=== PATIENT | male | born 1960 | race Caucasian/White ===

== ENCOUNTER 2019-11-22 15:52 | Inpatient (IN) ==
--- NOTE | 2019-11-22 16:25 | Diag Imaging Result Doc PS360 ---
EXAM: CHEST-2 VIEWS HISTORY: cough TECHNIQUE: Three views COMPARISON: 11/23/2017 FINDINGS: The lungs are hyperexpanded. Increased AP diameter to the chest. No cardiomegaly. There are increased interstitial markings in the left lung base. These were present on the prior exam. No consolidation. Mild compression fractures within two lower thoracic vertebra. Only one of these was compressed on the prior exam. IMPRESSION: 1.Left basilar scarring versus recurrent infiltrate 2.New mild lower thoracic compression fracture Electronically signed by Brown Ibarra 11/22/2019 4:23 PM
[2019-11-22 16:36] LABS: BASO# 0.07 X1000 (0.0-0.2); BASO% 0.4 % (0.0-0.8); HEMATOCRIT 45.3 % (42.0-52.0); HEMOGLOBIN 15.4 g/dL (14.0-18.0); IMM GRAN# 0.07 X1000 (0.0-0.04); IMM GRAN% 0.4 % (0.0-0.5); LYMPH# 1.58 X1000 (1.2-3.4); LYMPH% 8.7 % (20.5-51.1); MCH 30.9 PG (27-31); MONO# 1.08 X1000 (0.11-0.59); MONO% 5.9 % (1.7-9.3); MPV 10.1 FL (7.4-10.4); NEUT# 15.46 X1000 (1.4-6.5); NEUT% 84.6 % (42.2-75.2); PLT 141 X1000 (130-400); RBC 4.98 XMIL (4.7-6.1); RDW 12.6 % (11.5-14.5); WBC 18.26 X1000 (4.8-10.8)
--- NOTE | 2019-11-22 16:41 | EKG Report ---
Test Performed on : 11/22/2019 4:28:10 PM Test Reason : sob Blood Pressure : / mmHG Vent. Rate : 098 BPM Atrial Rate : 098 BPM P-R Int : 108 ms QRS Dur : 090 ms QT Int : 358 ms P-R-T Axes : 047 -18 076 degrees QTc Int : 457 ms Sinus rhythm. with short MI with occasional premature ventricular complexes. Nonspecific ST abnormality Abnormal ECG When compared with ECG of 23-NOV-2017 20:46, No significant change was found Unconfirmed Result
[2019-11-22 16:50] LABS: INR 1.18; PROTIME 15.2 Seconds (11.0-16.0)
[2019-11-22 16:51] LABS: PTT 55.6 Seconds (22.3-41.8)
[2019-11-22 17:05] LABS: ESTIMATED GFR > 60
[2019-11-22 17:06] LABS: AGAP 15; ALB/GLOB RATIO 1.3; ALBUMIN 3.8 g/dL (3.5-5.0); ALKALINE PHOSPHATASE 60 U/L (32-122); BUN 22 mg/dL (8-22); CALCIUM 8.1 mg/dL (8.8-10.2); CHLORIDE 88 mmol/L (98-107); CK PROFILE 1021 U/L (24-204); COSMO 259; CREATININE 1.2 mg/dL (0.7-1.2); GLUCOSE 137 mg/dL (70-104); GOT 42 U/L (10-34); GPT 28 U/L (10-44); SODIUM 126 mmol/L (136-145); TCO2 23 mmol/L (25-35); TOTAL BILIRUBIN 0.73 mg/dL (0.20-1.00); TOTAL PROTEIN 6.8 g/dL (6.3-8.3)
[2019-11-22] MEDS ORDERED: ROCEPHIN 1 GM in NS 50 ML IV ONE (18:10)
[2019-11-22] MEDS ORDERED: XOPENEX NEB INH ONE (18:13)
[2019-11-22] MEDS ORDERED: NS NEB INH SCH (18:15)
--- NOTE | 2019-11-22 18:26 | PROVIDER DOCUMENTATION ---
This chart was entered by Nini Sommers Scribe, acting as scribe for Ingris Teran MD. HPI-Respiratory General - General Chief Complaint: Shortness of Breath Stated Complaint: POSS PNEUMONIA / REFERRED BY CLINIC Time Seen by Provider: 11/22/19 18:01 Source: patient Allergies/Adverse Reactions: Patient Allergies Allergy/AdvReac Type Severity Reaction Status Date / Time No Known Allergies Allergy Verified 11/22/19 17:48 Home Medications: Home Medication List Medication Instructions Recorded Confirmed Last Taken Type Albuterol Sulfate [Proair Hfa] 2 puff IH Q4H PRN PRN #1 hfa.aer.[email or web address] 11/24/17 11/22/19 11/22/19 Rx Hydrochlorothiazide 12.5 mg PO DAILY 11/24/17 11/22/19 11/22/19 History Fluticasone Propionate [Flovent 50 mcg NS HS 11/22/19 11/22/19 11/21/19 History Diskus] Furosemide [Lasix] 40 mg PO DAILY 11/22/19 11/22/19 11/22/19 History Olmesartan/Hydrochlorothiazide 40 mg PO DAILY 11/22/19 11/22/19 11/22/19 History [Olmesartan-Hctz 40-25 mg Tab] Aspirin 81 mg PO DAILY #30 chewtab 11/26/19 Unknown Rx Azithromycin 500 mg PO DAILY #3 tab 11/26/19 Unknown Rx Cefuroxime Axetil [Cefuroxime] 500 mg PO BID #6 tab 11/26/19 Unknown Rx Prednisone 40 mg PO DAILY #12 tab 11/26/19 Unknown Rx - History of Present Illness-Resp Nature of Presenting Problem: pt is a 59 yowm c/o pt was referred by Dr. Gloria to come to er due to PNU dx. pt c/o sob, low o2 sat, diarrhea, fever and cough for 3-4 days. no o2 at home. pt had breathing tx [employer] senior. pt sts he is a former smoker, quit 1 wk ago. no alcohol or drug use. no known allergies. Severity in ED: reports: moderate Onset/Duration: reports: 3 days ago, 4 days ago Timing: reports: still present Context: reports: other (PNU dx) Cough Quality/Degree: reports: moderate Current Respiratory Medication Therapy: Initiated none Modifying Factors: improves with: nothing Associated Symptoms: reports: cough, fever/chills, shortness of breath, other (diarrhea) Recently seen or treated by another doctor?: Yes (Dr. Faizan mckeon ) Review of Systems - Adult - REVIEW OF SYSTEMS - ADULT Constitutional: reports: see HPI, fever. denies: chills, night sweats Eyes: reports: no symptoms reported Ears, Nose, Mouth & Throat: reports: no symptoms reported Cardiovascular: reports: no symptoms reported Respiratory: reports: see HPI, cough, shortness of breath, other (low o2). denies: dyspnea on exertion, excessive sputum production, hemoptysis Gastrointestinal: reports: see HPI, diarrhea. denies: abdominal pain, nausea, vomiting Genitourinary: reports: no symptoms reported Musculoskeletal: reports: no symptoms reported Integumentary: reports: no symptoms reported Neurological: reports: no symptoms reported Psychiatric: reports: no symptoms reported Endocrine: reports: no symptoms reported Hematologic/Lymphatic: reports: no symptoms reported Allergic/Immunologic: reports: no symptoms reported All Other Systems: Reviewed and Negative Past History - Adult - PAST MEDICAL HISTORY-ADULT Review of Records: reports: Nursing Assessment Review, Medications Reviewed, Social history reviewed & non-contributory. Major Childhood Illnesses: reports: denies history Cardiovascular: reports: denies history Respiratory: reports: denies history Gastrointestinal: reports: denies history Obstetrical/Gynecological: reports: denies history Genitourinary: reports: denies history Musculoskeletal: reports: denies history Neurological: reports: denies history Endocrine/Immune: reports: denies history Other Conditions: reports: denies history - IMMUNIZATION STATUS Childhood Immunizations: See Nurse Assessment Flu Vaccine: See Nurse Assessment - FAMILY HISTORY Family History: reviewed, not pertinent - SOCIAL HISTORY Smoking: quit less than 1 year, other (former smoker quit 1 wk ago) Substance Use: none/never Physical Exam-General - PHYSICAL EXAM-ADULT Initial Vital Signs Reviewed: Yes - CONSTITUTIONAL General Appearance: alert, mild distress, obese. negative: slow to respond, obtunded, combative - EYES Eyes: PERRL/EOMI - HEAD, EARS, NOSE, MOUTH & THROAT HENMT: normocephalic/atraumatic, moist mucous membranes - NECK Neck: non-tender, full range of motion, supple, normal inspection - RESPIRATORY Respiratory: chest non-tender, normal breath sounds, no pleuratic chest pain, no respiratory distress, no accessory muscle use, rhonchi (rt sided), wheezing (diffuse), other (o2 in place). negative: lungs clear, accessory muscle use, crackles - CARDIOVASCULAR Cardiovascular: normal peripheral pulses, regular rate, rhythm - GASTROINTESTINAL (ABDOMEN) Abdominal Exam: normal bowel sounds, non tender, soft - MUSCULOSKELETAL Back Exam: normal inspection Extremity: normal range of motion, non-tender, normal inspection Peripheral Pulses: dorsalis-pedis (R): 2+, dorsalis-pedis (L): 2+ - SKIN Integumentary: normal color, normal turgor, warm/dry - NEUROLOGIC Neurologic: grossly normal, no motor/sensory deficits - PSYCHIATRIC Psych/Mental Status: normal mood/affect, normal thought content, normal thought process, oriented x 3 Progress - PLAN OF CARE/RESULTS Progress/Plan/Lab Results: Orders Category Date Time Status Admit - [facility] Routine AdmDCTranf 11/22/19 22:59 Active Activity - Up with Assistance ORDERED Care 11/22/19 22:59 Active Cardiac Monitoring DIRECTED Care 11/22/19 16:20 Completed IV Insertion ORDERED Care 11/22/19 18:15 Completed Intake and Output-Strict Q 8-HR ASSESS Care 11/22/19 22:59 Active Notify MD of + Sepsis Screen NOW Care 11/22/19 18:15 Completed Notify Physician As Ordered Care 11/22/19 18:15 Active Nursing- MD Consult Request ROUTINE Care 11/22/19 22:59 Completed Oxygen Therapy- ED Nursing DIRECTED Care 11/22/19 16:20 Completed Saline Loc NOW Care 11/22/19 16:20 Completed Vital Signs Order Q 4-HR ASSESS Care 11/22/19 22:59 Completed Z-Document. for Tele Applied ORDERED Care 11/22/19 22:59 Completed NPO Diet 11/22/19 23:00 Completed CHEST-2 VIEWS [RAD] Stat Exams 11/22/19 15:57 Completed ABG [RESP] Routine Lab 11/22/19 19:48 Completed BASIC METABOLIC PANEL [CHEM] Routine Lab 11/23/19 04:12 Completed BLOOD CULTURE [BLDCUL] Stat Lab 11/22/19 18:30 Results CBC WITH DIFF [HEME] Routine Lab 11/23/19 04:12 Completed CBC WITH ELECTRONIC DIFF [HEME] Stat Lab 11/22/19 16:22 Completed CK PROFILE [SP CHEM] Stat Lab 11/22/19 16:22 Completed COMPREHENSIVE METABOLIC PANEL [CHEM] Stat Lab 11/22/19 16:22 Completed D-DIMER [COAG] Stat Lab 11/23/19 04:12 Completed LACTATE, PLASMA [CHEM] Lab 11/23/19 04:12 Completed LACTATE, PLASMA [CHEM] Q3H Lab 11/22/19 18:25 Completed PRO B-NATRIURETIC PEPTIDE Stat Lab 11/22/19 16:22 Completed PROTIME WITH INR [COAG] Stat Lab 11/22/19 16:22 Completed PTT [COAG] Stat Lab 11/22/19 16:22 Completed TROPONIN T HIGH SENSITIVITY Q6HR Lab 11/23/19 02:00 Completed TROPONIN T HIGH SENSITIVITY Q6HR Lab 11/23/19 08:53 Completed TROPONIN T HIGH SENSITIVITY Q6HR Lab 11/23/19 14:05 Completed TROPONIN T HIGH SENSITIVITY Stat Lab 11/22/19 16:22 Completed URINALYSIS W/POSS RFLX CULT [URINALYSIS] Stat Lab 11/23/19 00:00 Completed 0.9% Sodium Chloride Inj [Ns] 1,000 ml Med 11/22/19 22:59 Discontinued IV 75 mls/hr Acetaminophen [Tylenol] Med 11/22/19 22:59 Discontinued 650 mg PO Q6H PRN PRN Albuterol 2.5MG/Ipratrop 0.5MG [Duoneb (A & A)] Med 11/22/19 22:59 Discontinued 3 ml INH Q4H PRN PRN Aspirin Med 11/22/19 22:59 Discontinued 325 mg PO NOW ONE Azithromycin 500 mg/Ns [Zithromax 500 mg/Ns] Med 11/22/19 22:59 Discontinued 500 mg in 250 ml IV Q24H CefTRIAXONE [Rocephin] 1 gm Med 11/22/19 18:10 Discontinued 0.9% Sodium Chloride Inj [Ns] 50 ml IV NOW CefTRIAXONE [Rocephin] 1 gm Med 11/22/19 22:59 Discontinued 0.9% Sodium Chloride Inj [Ns] 50 ml IV Q24H Enoxaparin [Lovenox] Med 11/22/19 22:59 Discontinued 40 mg SUBQ Q24H Furosemide [Lasix] Med 11/22/19 19:24 Discontinued 40 mg IV NOW ONE Furosemide [Lasix] Med 11/23/19 09:00 Discontinued 40 mg PO DAILY Hydrochlorothiazide Med 11/23/19 09:00 Discontinued 25 mg PO DAILY Ibuprofen [Motrin] Med 11/22/19 19:16 Discontinued 600 mg PO NOW ONE Levalbuterol Neb [Xopenex Neb] Med 11/22/19 18:13 Discontinued 1.25 mg INH NOW ONE Methylprednisolone Sod Succ [Solu-Medrol] Med 11/22/19 19:16 Discontinued 125 mg IV NOW ONE Morphine Med 11/22/19 19:12 Discontinued 4 mg IV NOW ONE Olmesartan [Benicar] Med 11/23/19 09:00 Discontinued 40 mg PO DAILY Ondansetron [Zofran] Med 11/22/19 22:59 Discontinued 4 mg IV Q4H PRN PRN Sodium Chloride 0.9% Neb [Ns Neb] Med 11/22/19 18:15 Discontinued 5 ml INH DIRECTED Aerosol Treatments Routine Oth 11/22/19 18:14 Completed Aerosol Treatments Routine Oth 11/22/19 22:59 Completed Aerosol Treatments Stat Oth 11/22/19 18:14 Completed Aerosol Treatments Stat Oth 11/22/19 22:59 Completed Oxygen Device Routine Oth 11/22/19 22:59 Completed Oxygen Device Stat Oth 11/22/19 18:15 Completed Telemetry [OM.EQ] Routine Oth 11/22/19 22:59 Active EKG [EKG] Stat Ther 11/22/19 16:20 Draft Transfer/Admit Order [TRANSFER] Routine Transfer 11/22/19 21:11 Completed Result Diagrams: 11/26/19 07:16 11/26/19 07:16 - EKG 1 Time of EKG reading by physician:: 16:29 EKG Read and Signed by:: Fabian Juarez EKG Interpretation (*Must complete 3 of following elements*): Abnormal Rate: 98 [place]: normal QRS: normal OR Interval: normal ST Wave: non-specific ST changes (NSSTTWA) - XRAY 1 XRAY Study: Chest Impression: Abnormal, See EMR Report ( EXAM: CHEST-2 VIEWS HISTORY: cough TECHNIQUE: Three views COMPARISON: 11/23/2017 FINDINGS: The lungs are hyperexpanded. Increased AP diameter to the chest. No cardiomegaly. There are increased interstitial markings in the left lung base. These were present on the prior exam. No consolidation. Mild compression fractures within two lower thoracic vertebra. Only one of these was compressed on the prior exam. IMPRESSION: 1.Left basilar scarring versus recurrent infiltrate 2.New mild lower thoracic compression fracture Electronically signed by Brown Ibarra 11/22/2019 4:23 PM) - CONSULTS/PCP/HOSPITALIST Notification #1 *Consult/PCP/Hospitalist*: Dr. Peralta Time Discussed: 19:22 Consult Disposition: Will see in ED, Admit Departure - Departure Date of Disposition Decision: 11/22/19 Time of Disposition Decision: 18:22 DIAGNOSIS: Pneumonia, Hypoxia Disposition: ADMITTED INPATIENT 09 Certified Medical Emergency: Emergent Condition: Stable - Critical Care Note This patient required my direct & personal management of CC.: No Attestation - Physician/ ISHAN Attestation Patient care was provided by Advanced Practice Provider:: No The physician spent face to face time with patient:: Yes Advanced Practice Provider documentation review:: Supervising physician onsite and consulted in the evaluation and care of this patient. The physician did have a face to face encounter with the patient. This chart was documented by the indicated scribe, (Nini Sommers, Jack) and accurately reflects the services I performed and decisions made by me, Ingris Teran MD, as attested by the provider's signature.
[2019-11-22] MEDS ORDERED: MORPHINE IV ONE (19:12)
[2019-11-22] MEDS ORDERED: MOTRIN PO ONE (19:16)
[2019-11-22] MEDS ORDERED: SOLU-MEDROL IV ONE (19:16)
[2019-11-22] MEDS ORDERED: LASIX IV ONE (19:24)
[2019-11-22 19:56] LABS: ALLEN TEST YES; BE 2.4 mmoll (-3.0-3.0); BLOOD TYPE ARTERIAL; HCO3-(ACT) 26.5 mmoll (20.0-26.0); METHB 1.1 % (0.0-1.5); PCO2(98.6) 38 mmHg (35-45); PO2(98.6) 56 mmHg (60-100); SAMPLE BLOOD; SAO2 92.9 % (95.0-100.0); THB 15.9 g/dL (11.5-17.4); pH(98.6) 7.45 (7.35-7.45)
[2019-11-22 19:59] LABS: MODALITY CANNULA; O2HB 89.5 % (95.0-99.0)
[2019-11-22] MEDS ORDERED: VANCOMYCIN 1 GM/NS 1 GM/250 ML IVPB IV ONE (22:18)
[2019-11-22] MEDS: ROCEPHIN 1 GM in NS 50 ML IV SCH (22:59)
[2019-11-22] MEDS ORDERED: ASPIRIN PO ONE (22:59)
[2019-11-22] MEDS ORDERED: NS 1,000 ML IV PRN (22:59)
[2019-11-22] MEDS ORDERED: ZOFRAN IV PRN (22:59)
[2019-11-22] MEDS ORDERED: ZITHROMAX 500 MG/NS 500 MG/250 ML IVPB IV SCH (22:59)
[2019-11-22] MEDS ORDERED: TYLENOL PO PRN (22:59)
[2019-11-22] MEDS: DUONEB (A & A) INH PRN (23:57)
[2019-11-23] MEDS: LOVENOX SUBQ SCH ×2 (00:07→23:04)
--- NOTE | 2019-11-23 00:17 | HISTORY AND PHYSICAL ---
PRIMARY CARE PHYSICIAN: Dr. Sigala. CHIEF COMPLAINT: Shortness of breath for 4 days. HISTORY OF PRESENTING ILLNESS: A 59-year-old male with a history of hypertension, who presented to the emergency department with 4-day history of having progressively worsening shortness of breath. The patient states that he was around his grandchildren who were diagnosed with the flu. The patient states that his shortness of breath was worsening subsequently had come to the emergency department. In the ED he was evaluated. He had imaging done which did show the possibility of pneumonia. Subsequently he will require admission for further management. At the time of my examination, the patient denied any nausea, vomiting, diarrhea, chest pain, hemoptysis or any weight changes, but complained of shortness of breath and not feeling well. PAST MEDICAL HISTORY: Includes hypertension. PAST SURGICAL HISTORY: Cholecystectomy, jaw surgery. ALLERGIES: No known drug allergies. MEDICATIONS: Current medications include albuterol inhaler 2 puffs q.4 hours, Lasix 40 mg p.o. daily, hydrochlorothiazide 12.5 mg p.o. daily, olmesartan/hydrochlorothiazide 40/25 one p.o. daily. SOCIAL HISTORY: He is a former smoker. No history of alcohol or illicit drug use. FAMILY HISTORY: Positive for coronary disease in father. REVIEW OF SYSTEMS: Fourteen-point review of systems is as in HPI. Other systems negative. PHYSICAL EXAMINATION: GENERAL: Cooperative, friendly male, resting more comfortably now. VITAL SIGNS: Temperature 100.8 degrees, pulse 102, respirations 20, blood pressure 93/57. HEENT: Atraumatic, normocephalic. Extraocular movements intact. PERRLA. NECK: No masses. CHEST: Rhonchi. CARDIOVASCULAR: Regular rate and rhythm. ABDOMEN: Soft. Positive bowel sounds. EXTREMITIES: Edema +1. NEUROLOGIC: He is awake, alert, oriented x3. GENITOURINARY: No bladder distention. SKIN: Warm. LABORATORY DATA: Sodium 126, potassium 4.0, chloride 88, CO2 is 23, BUN is 22, creatinine is 1.2, glucose 137. Troponin is 125. WBCs 18.26, hemoglobin 15.4, hematocrit 45.3, platelets 141,000. Blood gas shows pH of 7.45, pCO2 of 38. DIAGNOSTIC DATA: Chest x-ray shows recurrent infiltrate. ASSESSMENT: This is a 59-year-old male with a history of hypertension, who had presented to the emergency department with 4-day history of worsening shortness of breath. He was evaluated in the emergency department. Imaging did show the possibility of infiltrate suspicious for pneumonia. Subsequently he will require admission for further management. The patient was also noted to have dyspnea symptoms with mildly elevated troponins, raising the concern for anginal symptoms. 1. Suspected pneumonia. 2. Dyspnea, anginal equivalent with mildly elevated troponin. 3. Hypertension. PLAN: 1. We will admit the patient to PVC. 2. We will check blood cultures. Start patient on IV antibiotics. 3. We will put the patient on supplemental oxygen and aspirin, consult Cardiology and trend his troponins. 4. Monitor blood pressure. Resume antihypertensive agent. 5. We will put the patient on DVT prophylaxis with Lovenox. 6. We will continue to follow, reassess and make further recommendation based on the patient's clinical course. cc: Jose Guadalupe Peralta MD
[2019-11-23 02:46] LABS: URINE SOURCE CLEAN CATCH
[2019-11-23 02:49] LABS: BILIRUBIN URINE NEGATIVE (NEGATIVE); BLOOD URINE NEGATIVE (NEGATIVE); COLOR YELLOW; GLUCOSE URINE NEGATIVE (NEGATIVE); KETONE URINE NEGATIVE (NEGATIVE); LEUKOCYTES URINE NEGATIVE (NEGATIVE); NITRITE URINE NEGATIVE (NEGATIVE); PROTEIN URINE TRACE mg/dL (NEGATIVE); SP GRAVITY URINE 1.017; TURBIDITY URINE CLEAR (CLEAR); UROBILINOGEN URINE NORMAL (NORMAL)
[2019-11-23 02:58] LABS: UR EPITHELIAL CELLS <10 /HPF (<10); URINE BACTERIA NEGATIVE /HPF; URINE RBC <10 /HPF (<10); URINE WBC <10 /HPF (<10)
[2019-11-23 02:59] LABS: URINE CASTS NONE SEEN; URINE SMALL ROUND CELLS NONE SEEN; URINE YEAST NONE SEEN
[2019-11-23 03:00] LABS: URINE CRYSTALS NONE SEEN
[2019-11-23] MEDS: DUONEB (A & A) INH PRN (04:05)
[2019-11-23] MEDS ORDERED: VANCOMYCIN 1 GM/NS 1 GM/250 ML IVPB ONE (04:21)
[2019-11-23 04:40] LABS: BASO# 0.04 X1000 (0.0-0.2); BASO% 0.2 % (0.0-0.8); HEMATOCRIT 46.4 % (42.0-52.0); HEMOGLOBIN 15.8 g/dL (14.0-18.0); IMM GRAN# 0.07 X1000 (0.0-0.04); IMM GRAN% 0.4 % (0.0-0.5); LYMPH# 0.78 X1000 (1.2-3.4); LYMPH% 4.6 % (20.5-51.1); MCH 31.2 PG (27-31); MCHC 34.1 g/dL (33-37); MCV 91.7 FL (81-99); MONO% 2.3 % (1.7-9.3); NEUT% 92.5 % (42.2-75.2); PLT 134 X1000 (130-400); RBC 5.06 XMIL (4.7-6.1); RDW 12.9 % (11.5-14.5); WBC 17.09 X1000 (4.8-10.8)
[2019-11-23 04:56] LABS: AGAP 12; BUN 28 mg/dL (8-22); CALCIUM 7.6 mg/dL (8.8-10.2); CHLORIDE 88 mmol/L (98-107); COSMO 265; ESTIMATED GFR > 60; GLUCOSE 217 mg/dL (70-104); POTASSIUM 4.1 mmol/L (3.5-5.1); SODIUM 126 mmol/L (136-145); TCO2 26 mmol/L (25-35)
[2019-11-23 07:13] LABS: LYMPHS 4 % (21-51); MONO 2 % (1-9); SEGS 94 % (42-75)
--- NOTE | 2019-11-23 07:28 | Diag Imaging Result Doc PS360 ---
EXAM: CT ABD/PELVIS W/IV CONT ONLY INDICATION: ruq/rlq large tender RIH wbc 18k TECHNIQUE: This exam was performed using automated exposure control, adjustment of mA or kV according to patient size, and/or use of iterative reconstruction technique. COMPARISON: None. FINDINGS: There are patchy airspace consolidations at the lung bases as well as tree-in-bud opacities indicating pneumonia and bronchiolitis. There is advanced hepatic steatosis. There has been a prior cholecystectomy. The spleen, pancreas, and adrenal glands are unremarkable. The kidneys and urinary bladder are essentially unremarkable. There is extensive but uncomplicated sigmoid colonic diverticulosis. The appendix is normal. No focal bowel wall thickening or bowel obstruction is identified. The remainder of the GI tract is grossly unremarkable. No focal inflammatory changes, free abdominal gas, or free fluid is identified. There is extensive aortoiliac atherosclerotic calcification but no evidence of aneurysm. Compression deformities are noted at T9, T10, and T11 of unknown acuity. IMPRESSION: 1.Patchy airspace consolidation with tree-in-bud opacities at both lung bases suggesting atypical pneumonia and bronchiolitis. 2.Advanced hepatic steatosis. 3.Other incidental/nonacute findings detailed above. No definite acute abdominal or pelvic pathology. Electronically signed by Zen Sommers 11/23/2019 7:26 AM
[2019-11-23] MEDS: BENICAR PO SCH (08:29)
[2019-11-23] MEDS ORDERED: LASIX PO SCH (09:00)
[2019-11-23] MEDS ORDERED: HYDROCHLOROTHIAZIDE PO SCH (09:00)
[2019-11-23] MEDS: DUONEB (A & A) INH SCH ×5 (10:28→23:15)
--- NOTE | 2019-11-23 10:48 | PROGRESS NOTE ---
DATE: 11/23/2019 INTERVAL HISTORY: Mr. Martinez was admitted for acute hypoxic respiratory failure and bilateral lower lobe pneumonia. He did not have any other acute overnight events. SUBJECTIVE: He denies any chest pain during the entirety of this episode. It lasted 5 to 6 days. He is still feeling a little bit short of breath but it is better. He is denying any cough. His flu test in the [facility] was negative. His is at bedside. We discussed about pneumonia. We discussed about abnormal heart enzymes. We discussed about needing antibiotics. I answered all of his questions. I encouraged him to continue to quit smoking. VITALS: Temperature of 98.3 degrees, pulse 66, respiratory rate 16, blood pressure 150/80, he is saturating 93% on 2 L nasal cannula. PHYSICAL EXAMINATION: Not in any acute distress. Oral cavity is moist. Lungs: Air entry bilaterally equal. No wheeze or rhonchi. He does have, in fact, bilateral crackles in the infrascapular region. He has pharyngeal congestion as well. Abdomen is obese, soft, nontender. Mild bilateral lower extremity edema. He is alert and oriented x3. LABS: Suggestive of leukocytosis with 0% eosinophil count. He has a slightly elevated D-dimer. He does have hyponatremia, hypochloremia, normal kidney function with creatinine of 1. His troponins have been trending down from 125 to 49. MICROBIOLOGY: Blood cultures are in the lab. IMAGING: Abdomen and pelvis CT performed for tenderness in the abdomen had a patchy airspace consolidation in bilateral lung goncalves. Electrocardiogram on presentation had normal sinus rhythm with premature ventricular contractions. ASSESSMENT AND PLAN: 1. Sepsis and acute hypoxic respiratory failure due to bilateral lower lobe pneumonia. Follow up blood culture, urine streptococcal and Legionella antigen, as well as flu test. Continue intravenous ceftriaxone and azithromycin. 2. History of chronic obstructive pulmonary disease, active tobacco abuse, with mild chronic obstructive pulmonary disease exacerbation. He is currently not actively wheezing on my examination. I will keep him on inhaled bronchodilators, scheduled albuterol ipratropium every 4 hours. I will also start him on inhaled steroids. He does not have significant wheezing to need intravenous steroids at the moment. I encouraged him to stop smoking, which he states he did a week ago. 3. Elevated troponin likely due to type 2 [place]. No known history of coronary artery disease. He states he did have abnormal mild abnormal heart enzymes a year ago. At that time, echocardiogram was normal. He is denying any chest pain. Electrocardiogram does not have any acute coronary syndrome-related ST-segment changes. I will repeat electrocardiogram now considering his risk factor for coronary artery disease. I will keep him on aspirin. I will follow up with echocardiogram. He may need outpatient cardiology evaluation for a stress test. 4. Hyponatremia with a history of essential hypertension, likely because of use of hydrochlorothiazide. I will continue to monitor him and follow up with daily electrolytes. 5. Disposition. I will continue to monitor patient inside PVC unit for his hypoxia. Plan of care discussed with the patient and his at bedside. Their questions have been satisfactorily answered. cc: Andrew Schulte MD MTDD
--- NOTE | 2019-11-23 11:30 | EKG Report ---
Test Performed on : 11/23/2019 11:19:40 AM Test Reason : Follow up EKG Blood Pressure : / mmHG Vent. Rate : 071 BPM Atrial Rate : 071 BPM P-R Int : 134 ms QRS Dur : 096 ms QT Int : 430 ms P-R-T Axes : 064 -26 038 degrees QTc Int : 467 ms Normal sinus rhythm. Nonspecific ST abnormality Abnormal ECG When compared with ECG of 22-NOV-2019 16:28, (Unconfirmed) premature ventricular complexes. are no longer present Confirmed by Maxi ESCALANTE, Saul Leo ([id number]) on 11/24/2019 7:30:41 AM
[2019-11-23] MEDS: ASPIRIN PO SCH (11:35)
[2019-11-23] MEDS: SYMBICORT 160/4.5 MICROGM INHALER INH SCH ×2 (11:53→19:40)
--- NOTE | 2019-11-23 15:37 | ECHO REPORT ---
ORDER DATE: 11/23/2019 INDICATION: Elevated troponins. FINDINGS: 1. Right atrium appears mildly enlarged at 4.4 cm. 2. Mild tricuspid regurgitation. RV systolic pressure of 36. 3. Normal RV size and systolic function. 4. No significant pulmonic insufficiency. 5. Moderate left atrial enlargement with a volume index of 39. 6. No mitral prolapse. Mild mitral regurgitation. No mitral stenosis. 7. Normal LV size, end-diastolic dimension of 5.1 cm. Mild to moderate left ventricular hypertrophy with posterior and interventricular septal wall thickness of 1.4 cm each. Normal LV systolic function. Estimated EF 60% with normal wall motion. 8. Aortic valve opens well. No evidence of stenosis or insufficiency. 9. Aorta appears somewhat enlarged with a dimension of 3.9 cm at the root. 10. No pericardial effusion seen. 11. Suggestion of grade 2 diastolic dysfunction. cc: MD Andrew Harris MD
[2019-11-23] MEDS: ROCEPHIN 1 GM in NS 50 ML IV SCH (23:04)
[2019-11-23] MEDS: ZITHROMAX 500 MG/NS 500 MG/250 ML IVPB IV SCH (23:04)
[2019-11-24] MEDS: DUONEB (A & A) INH SCH ×6 (03:45→22:45)
[2019-11-24 06:47] LABS: CHOLESTEROL 113 mg/dL (0-200); HDL 27 mg/dL (35-55); LDL 54 mg/dL; TRIGLYCERIDES 159 mg/dL (39-160); VLDL 32 mg/dL
--- NOTE | 2019-11-24 07:26 | EKG Report ---
Test Performed on : 11/24/2019 06:42:09 AM Test Reason : Follow upEKG Blood Pressure : / mmHG Vent. Rate : 073 BPM Atrial Rate : 073 BPM P-R Int : 116 ms QRS Dur : 096 ms QT Int : 434 ms P-R-T Axes : 047 032 060 degrees QTc Int : 478 ms Normal sinus rhythm. Normal ECG When compared with ECG of 23-NOV-2019 11:19, (Unconfirmed) No significant change was found Confirmed by Maxi ESCALANTE, Saul Leo ([id number]) on 11/24/2019 7:31:36 AM
[2019-11-24] MEDS: SYMBICORT 160/4.5 MICROGM INHALER INH SCH ×2 (07:57→19:34)
[2019-11-24 08:05] LABS: AGAP 11; BUN 33 mg/dL (8-22); CHLORIDE 91 mmol/L (98-107); COSMO 272; CREATININE 0.9 mg/dL (0.7-1.2); ESTIMATED GFR > 60; GLUCOSE 175 mg/dL (70-104); POTASSIUM 3.8 mmol/L (3.5-5.1); SODIUM 130 mmol/L (136-145); TCO2 28 mmol/L (25-35)
[2019-11-24] MEDS: BENICAR PO SCH (08:20)
[2019-11-24] MEDS: ASPIRIN PO SCH (08:20)
--- NOTE | 2019-11-24 09:06 | PROGRESS NOTE ---
DATE: 11/24/2019 INTERVAL HISTORY: No acute events overnight. SUBJECTIVE: Mr. Martinez is feeling significantly better. He states he was not able to sleep at night because of multiple interruptions. He denies any chest pain. He states he is feeling 90% better than when he presented. He is still a little short of breath. He denies any nausea, vomiting, abdominal pain. He is only occasionally coughing. When I evaluated him, his vitals suggested a temperature of 97.9, pulse of 80, respiratory rate 20, blood pressure 129/79. He is saturating 84% on room air. PHYSICAL EXAMINATION: He is not in any acute distress. Oral cavity is moist. Lungs: Air entry bilaterally equal. No wheeze. He does have decreased breath sounds bilaterally with inspiratory crackles in the infrascapular region. Cardiovascular: S1, S2 normal. No murmur, rub, or gallop. Abdomen: Soft, nontender. He only has mild lower extremity edema. Abdomen is obese. He is alert and oriented x3. He is legally blind. LABS: No CBC today. BMP suggestive of improvement in sodium and chloride. His kidney function is normal. BUN of 33, creatinine 0.9. No positive microbiological data. Influenza screen was negative. A chest x-ray has been ordered. ASSESSMENT AND PLAN: 1. Sepsis and acute hypoxic respiratory failure due to bilateral lower lobe pneumonia. Urine streptococcus and legionella antigens were never collected. Flu test was negative. Continue intravenous ceftriaxone, azithromycin. Continue oxygenation to maintain saturation more than 90%. 2. History of chronic obstructive pulmonary disease, active tobacco abuse, with mild chronic obstructive pulmonary disease exacerbation. He is not wheezing at the moment. I will keep him on inhaled bronchodilators, inhaled steroids, and I will repeat a chest x-ray. 3. Elevated troponins due to type 2 myocardial infarction without known history of coronary artery disease. Echocardiogram had ejection fraction of 60% without any regional wall motion abnormality. Electrocardiogram did not have ST changes. He would need outpatient cardiology followup. He denies any exertional symptoms like chest pain or worsening shortness of breath. 4. Hyponatremia, likely because of use of hydrochlorothiazide, improved after stopping hydrochlorothiazide. 5. Disposition. I will monitor patient in [facility] due to his hypoxia. He was requesting me to discharge him to go home because of the other duties that he had to perform. I explained to him about his persistent hypoxia, need for oxygen, and need for intravenous antibiotics. He understood it. cc: Andrew Schulte MD MTDLilian
--- NOTE | 2019-11-24 10:10 | Diag Imaging Result Doc PS360 ---
EXAM: CHEST-2 VIEWS 11/24/2019 HISTORY: hypoxia TECHNIQUE: Two views the chest COMMENT: There are ill-defined opacities in both lung bases. This was also the case at the time the previous study of 11/22/2019 and 11/23/2017. IMPRESSION: Pulmonary fibrosis. Electronically signed by Duglas Hurst 11/24/2019 10:07 AM
[2019-11-24 12:06] LABS: ALLEN TEST NO; BE 5.7 mmoll (-3.0-3.0); BLOOD TYPE ARTERIAL; HCO3-(ACT) 29.2 mmoll (20.0-26.0); METHB 0.9 % (0.0-1.5); O2(CT) 20.2 mL/dL (15.0-23.0); O2HB 93.3 % (95.0-99.0); PO2(98.6) 69 mmHg (60-100); SAMPLE BLOOD; SAO2 95.8 % (95.0-100.0); THB 15.4 g/dL (11.5-17.4); pH(98.6) 7.37 (7.35-7.45)
[2019-11-24 12:10] LABS: MODALITY CANNULA; PCO2(98.6) 57 mmHg (35-45)
--- NOTE | 2019-11-24 14:13 | PROVIDER PROGRESS NOTE ---
Progress Note Patient has been seen and examined. A full dictation to follow.
[2019-11-24] MEDS: SOLU-MEDROL IV SCH ×2 (14:36→22:37)
[2019-11-24] MEDS: LOVENOX SUBQ SCH (22:37)
[2019-11-24] MEDS: ROCEPHIN 1 GM in NS 50 ML IV SCH (22:37)
[2019-11-24] MEDS: ZITHROMAX 500 MG/NS 500 MG/250 ML IVPB IV SCH (22:37)
[2019-11-25] MEDS: DUONEB (A & A) INH SCH ×5 (03:10→19:52)
[2019-11-25 05:23] LABS: ALLEN TEST YES; BE 6.1 mmoll (-3.0-3.0); BLOOD TYPE ARTERIAL; HCO3-(ACT) 29.7 mmoll (20.0-26.0); METHB 0.6 % (0.0-1.5); O2(CT) 20.9 mL/dL (15.0-23.0); O2HB 96.8 % (95.0-99.0); PO2(98.6) 110 mmHg (60-100); SAMPLE BLOOD; SAO2 98.7 % (95.0-100.0); THB 15.3 g/dL (11.5-17.4); pH(98.6) 7.37 (7.35-7.45)
[2019-11-25 05:25] LABS: MODALITY CANNULA
[2019-11-25 05:27] LABS: PCO2(98.6) 58 mmHg (35-45)
[2019-11-25] MEDS: SOLU-MEDROL IV SCH ×2 (06:23→14:24)
[2019-11-25] MEDS: SYMBICORT 160/4.5 MICROGM INHALER INH SCH ×2 (08:01→19:52)
--- NOTE | 2019-11-25 08:34 | PULMONOLOGY CONSULTATION ---
DATE: 11/24/2019 REQUESTING PROVIDER: Andrew Schulte MD. REASON FOR CONSULTATION: Establish care, hypoxia, COPD. HISTORY OF PRESENT ILLNESS: This is a 59-year-old male with a medical history of COPD, ongoing tobacco use, obstructive sleep apnea, premature ventricular contractions, hypertension and legal blindness. He presented to the ER on 11/22/2019 with the diagnosis of pneumonia by Dr. Gloria. He apparently has worsening shortness of breath, desaturations, diarrhea, high fever, and cough for 3 to 4 days. One of his granddaughters was diagnosed with pneumonia and flu recently. Initial workup in the ER revealed possible pneumonia, hypoxemia, and troponin elevation. He has been admitted to the [facility] with antibiotics including ceftriaxone and azithromycin. CT abdomen and pelvis with IV contrast revealed patchy airspace consolidation. These tree-in-bud opacities at both lung bases suggesting atypical pneumonia and bronchiolitis, advanced hepatic steatosis, extensive but uncomplicated sigmoid colonic diverticulosis and extensive aorto- iliac atherosclerotic calcification, but no evidence of any wheezing. Echocardiogram on 11/23/2019 revealed grade 2 diastolic dysfunction, mildly enlarged right atrial, moderate left atrial enlargement and somewhat enlarged aorta with estimated ejection fraction 60% with normal wall motion. The patient currently is sitting on the edge of the bed with no acute distress noted. He is on nasal cannula at 4 L and tolerates it well. He states he is feeling significantly better and he is ready to go home. He still has some shortness of breath with activities with occasional cough, but he reports no fever, wheezing, nausea or vomiting, bowel habit change, urination discomfort, chest pain, or palpitation. He does have insomnia that he cannot fall asleep at nighttime. The patient's home BiPAP machine is at the bedside and he has been using it overnight. The patient's is at the bedside. PAST MEDICAL HISTORY: 1. COPD. 2. Ongoing tobacco use. 3. Obstructive sleep apnea with nocturnal hypoxia on the BiPAP therapy at home since 2018. 4. Premature ventricular contractions. 5. Hypertension. 6. Legal left eye blindness. PAST SURGICAL HISTORY: Cholecystectomy. SOCIAL HISTORY: The patient is and lives at home with his family. He was a daily smoker and smoked about 1 pack per day, but has quit recently, about 1 week because of sickness. He denies alcohol or illicit drug use. FAMILY HISTORY: Positive for coronary disease. ALLERGIES: No known drug allergies. REVIEW OF SYSTEMS: A 10-point review of systems was conducted and the pertinent is listed within the HPI, otherwise, noncontributory. PHYSICAL EXAMINATION: Vital Signs: Temperature 97.8, blood pressure 131/66, pulse 78, respiratory rate 19, oxygen saturation 97% on nasal cannula at 4 L. General: Sitting on the edge of the bed with no acute distress noted. HEENT: Normocephalic. Trachea midline. Mucosa pink and moist. Respiratory: Even and unlabored. Symmetrical excursion. Auscultation reveals mild expiratory wheezing and inspiratory crackles bilaterally. Cardiovascular: Regular rate and rhythm with S1-S2 appreciated. Gastrointestinal: Soft, nontender, obese, protuberant. Normoactive bowel sounds in all 4 quadrants. Extremities: Trace BLE pitting edema. No cyanosis. No clubbing. Neurologic: Alert, oriented x4. Speech fluent. Follows commands. Legal blindness note. LABORATORY DATA: Sodium 130, potassium 3.8, chloride 91, carbon dioxide 28, BUN 33, creatinine 0.9, glucose 175. ABG: PH is 7.37, pCO2 of 57, PO2 of 69, HC03 of 29.2, base excess 5.7, oxyhemoglobin 93.3 on nasal cannula at 4 L. IMAGING DATA: Chest x-ray this morning showed ill-defined opacities in both lung bases representing pulmonary fibrosis. ASSESSMENT: This is a 59-year-old male with medical history of chronic obstructive pulmonary disease, ongoing tobacco use, obstructive sleep apnea, premature ventricular contractions, hypertension and legal blindness. He has been admitted to [facility] since 11/22/2019 with suspected pneumonia and moderate troponin elevation. 1. Acute hypoxemic hypercapnic respiratory failure. 2. Atypical pneumonia and bronchiolitis representing by the patchy airspace consolidation with tree-in-bud opacities at both lung bases. 3. Mild chronic obstructive pulmonary disease exacerbation with bronchitis. 4. Ongoing tobacco use. 5. Troponin T elevation. Echocardiogram on 11/23/2019 revealed grade 2 diastolic dysfunction, mildly enlarged right atrium, moderate left atrial enlargement and somewhat enlarged aorta. Estimated ejection fraction 60% with normal wall motion. 6. Obstructive sleep apnea on home BiPAP therapy. PLAN: 1. Continuous supplemental oxygen. Titrate oxygen based on patient's needs. Continue home BiPAP therapy. 2. Continue antibiotics including ceftriaxone and azithromycin. Continue bronchodilators. Start IV Solu-Medrol 3. Follow up with arterial blood gasses and chest x-ray if indicated. 4. Recommend outpatient sleep study re-evaluation. 5. Smoking cessation education. 6. Further recommendations pending hospital course. Thank you for the courtesy of this consult. Evaluation time in minutes was 31 minutes. Dictated by MANISH Ohara for Travis Olivo MD cc: MANISH Ohara MD [facility]
[2019-11-25] MEDS: ASPIRIN PO SCH (08:49)
[2019-11-25] MEDS: BENICAR PO SCH (08:49)
[2019-11-25] MEDS ORDERED: BENICAR PO SCH (09:00)
--- NOTE | 2019-11-25 10:38 | PROGRESS NOTE ---
DATE: 11/25/2019 INTERVAL HISTORY: No acute events overnight. SUBJECTIVE: Mr. Martinez is feeling much better than yesterday. He denies any chest pain or shortness of breath. His cough appears to be at baseline. He denies any nausea, vomiting. He has some abdominal pain because of coughing and he states he is willing to be more compliant with medical care today and would like to remain in the hospital if that was necessary. VITAL SIGNS: Temperature 97.5 degrees, pulse 73, respiratory rate 14, blood pressure 146/73. He is saturating 91 to 95 percent. PHYSICAL EXAMINATION: General: Obese, not in acute distress. HEENT: Oral cavity is moist. He did have mild pharyngeal congestion. Lungs: Air entry bilaterally equal. No wheeze, rhonchi, or crackles. He does have decreased breath sounds bilaterally. Cardiovascular: S1, S2 normal. No murmur, rub or gallop. Abdomen: Obese, soft, nontender. Extremities: Mild lower extremity edema. Neurologic: He is alert and oriented x3. He is legally blind in the left eye. LABORATORY DATA: No CBC today. ABG suggestive of hypercarbia which appears to be compensated. No BMP today. No positive microbiological data. Influenza screen was negative. IMAGING: Chest x-ray yesterday had suggested pulmonary fibrosis. ASSESSMENT AND PLAN: 1. Sepsis and acute hypoxic respiratory failure due to bilateral lower lobe atypical pneumonia. Continue intravenous ceftriaxone, azithromycin and oxygenation to maintain saturation more than 90%. Appreciate Pulmonology recommendation. 2. History of chronic obstructive pulmonary disease, active tobacco abuse with mild chronic obstructive pulmonary disease exacerbation as well as suspicion of pulmonary fibrosis. Continue inhaled bronchodilators, inhaled steroids and intravenous steroids as per Pulmonology recommendation. 3. Elevated troponins due to type 2 myocardial infarction with known history of coronary artery disease. Echocardiogram had ejection fraction of 60%. EKG did not have any acute coronary syndrome-related ST changes. Outpatient Cardiology followup was recommended to him. His lipid panel had LDL of 54. I will keep him on daily aspirin. He does not have hyperlipidemia. 4. Hyponatremia, likely because of use of hydrochlorothiazide, now improved after stopping hydrochlorothiazide. Follow up BMP tomorrow. His hyponatremia has been chronic. 5. Essential hypertension. Continue olmesartan. DISPOSITION: Considering patient's hypoxia, I will monitor him in the hospital for another 24 hours. I may get home oxygen evaluation tomorrow. Based on his course, I will anticipate discharge in next 24 to 48 hours. Plan of care discussed with the patient. His questions have been answered. cc: Andrew Schulte MD
--- NOTE | 2019-11-25 17:20 | PROVIDER PROGRESS NOTE ---
Progress Note Dr. Olivo Progress Note/Pulmonary and or critical care We appreciated progress of care, Complications, change in diagnosis, and instructions to patient. Subjective: We note the level of consciousness, bed (chair) position, family presence (if any), level of lethargy, feeling of symptoms, and changes from baseline condition/symptom. Patient is sitting at the edge of the bed on a NC 4 L. He states he is feeling better. He reports some sinus issue and mild generalized body itch. He uses Juan Luis nase at home qhs and benadryl at times. He reports his last sleep study was done over 1 year ago. He also complains of higher blood pressure this am and states he needs to take his home blood pressure medicine. After explained the underlying reasons including the side effects of steroid and hydrochlorothiazide induced hyponatremia, he shows understanding and states he will follow order. Objective: Vital Signs: We reviewed EMR current values for Pulse rate, Blood pressure, Pulse rate, respiratory rate and Pulse oximetry. Also noted other values and trends if present (e.g. I/O, CVP). T 97.5, FL 73, RR 21, BP 146/73 and SaO2 95% on NC 4L. Physical Examination: General: sitting on the edge of the bed with no acute distress noted. HEENT: Trachea midline. Mucosa pink and moist. Chest: Even and unlabored. Symmetrical excursion. Auscultation reveals mild inspiratory wheezing RLL and inspiratory crackles bilaterally. CVS: Regular rate and rhythm with S1 and S2 appreciated. Abdomen: Soft. Non-tender. Obese. Protuberant. Normoactive bowel sounds in all 4 quadrants. Extremities: BLE trace edema. No cyanosis. No clubbing. Neuro: A/O x4. Speech fluent. Following commands. Legal left eye blindness noted. Labs and Radiology: Reviewed available labs and radiology values available at time of EMR review. Laboratory Results 11/23/19 11/23/19 11/25/19 09:20 09:20 05:13 Specimen Type ARTERIAL Sample Site R RADIAL pH 7.37 pCO2 58 H* pO2 110 H HCO3 29.7 H Base Excess 6.1 H Oxyhemoglobin 96.8 ABG O2 Sat (Calculated) 20.9 ABG O2 Saturation 98.7 ABG Carboxyhemoglobin 1.30 ABG Methemoglobin 0.6 Ted Test YES A-a O2 Difference 74.0 Total Hemoglobin 15.3 Lactate 1.60 Liter Flow 4.0 Blood Gas Modality CANNULA FiO2 % 36.0 Urine Legionella Ag SEE COMMENTS Ur Strep pneumoniae Ag SEE COMMENTS Assessment: Acute hypoxic hypercapnic respiratory failure. Atypical pneumonia and bronchiolitis, represented by patchy airspace consolidation with tree-in-bud opacities at both lung bases Mild COPD exacerbation with bronchitis. Ongoing tobacco use. Troponin T elevation. Echocardiogram on 11/23/19 revealed grade 2 diastolic dysfunction, mildly enlarged right atrium, moderate left atrial enlargement and somewhat enlarged aorta. Estimated EF 60% with normal wall motion. NAZARIO. Plan: Continue current treatment and supportive care per admitting and other teams on the case. Antibiotics including Ceftriaxone and azithromycin. Bronchodilators. IV Solu-Medrol. Tapering down. Encourage incentive spirometer use. DVT prophylaxis. Input was appreciated from Admitting MD and other teams on the case. Evaluation time in minutes: 33 minutes.
[2019-11-25] MEDS: ROCEPHIN 1 GM in NS 50 ML IV SCH ×2 (20:01→22:45)
[2019-11-25] MEDS ORDERED: BENADRYL PO SCH (21:00)
[2019-11-25] MEDS ORDERED: FLONASE NAS SCH (21:00)
[2019-11-25] MEDS: LOVENOX SUBQ SCH (22:45)
[2019-11-26] MEDS: DUONEB (A & A) INH SCH ×4 (00:07→11:55)
[2019-11-26] MEDS ORDERED: SOLU-MEDROL IV SCH (03:00)
[2019-11-26 06:11] LABS: ALLEN TEST YES; BE 8.3 mmoll (-3.0-3.0); BLOOD TYPE ARTERIAL; HCO3-(ACT) 31.3 mmoll (20.0-26.0); O2(CT) 20.5 mL/dL (15.0-23.0); PO2(98.6) 81 mmHg (60-100); SAMPLE BLOOD; SAO2 97.6 % (95.0-100.0); THB 15.3 g/dL (11.5-17.4); pH(98.6) 7.39 (7.35-7.45)
[2019-11-26 06:19] LABS: MODALITY BI PAP; PCO2(98.6) 59 mmHg (35-45)
[2019-11-26 08:41] LABS: BASO# 0.03 X1000 (0.0-0.2); BASO% 0.3 % (0.0-0.8); HEMATOCRIT 45.2 % (42.0-52.0); IMM GRAN# 0.07 X1000 (0.0-0.04); IMM GRAN% 0.7 % (0.0-0.5); LYMPH# 1.67 X1000 (1.2-3.4); LYMPH% 15.7 % (20.5-51.1); MCHC 33.2 g/dL (33-37); MCV 93.4 FL (81-99); MONO# 1.17 X1000 (0.11-0.59); MPV 10.1 FL (7.4-10.4); NEUT# 7.71 X1000 (1.4-6.5); NEUT% 72.3 % (42.2-75.2); PLT 178 X1000 (130-400); RBC 4.84 XMIL (4.7-6.1); RDW 12.2 % (11.5-14.5); WBC 10.65 X1000 (4.8-10.8)
[2019-11-26] MEDS: SYMBICORT 160/4.5 MICROGM INHALER INH SCH (08:44)
[2019-11-26 09:00] LABS: AGAP 9; BUN 15 mg/dL (8-22); CALCIUM 8.5 mg/dL (8.8-10.2); CHLORIDE 92 mmol/L (98-107); COSMO 263; CREATININE 0.7 mg/dL (0.7-1.2); ESTIMATED GFR > 60; GLUCOSE 131 mg/dL (70-104); MAGNESIUM 2.2 mg/dL (1.5-2.7); SODIUM 130 mmol/L (136-145); TCO2 29 mmol/L (25-35)
[2019-11-26] MEDS: BENICAR PO SCH (10:29)
[2019-11-26] MEDS: ASPIRIN PO SCH (10:30)
[2019-11-26] MEDS: ZITHROMAX 500 MG/NS 500 MG/250 ML IVPB IV SCH (10:30)
[2019-11-26 11:40] LABS: LYMPHS 8 % (21-51); MONO 10 % (1-9); SEGS 82 % (42-75)
[2019-11-26 12:16] VITALS: BP 169/94
--- NOTE | 2019-11-26 16:01 | DISCHARGE SUMMARY ---
ADMISSION DATE: 11/22/2019 DISCHARGE DATE: 11/26/2019 DISPOSITION: Home with home oxygen. DISCHARGE CONDITION: Hemodynamically stable. He is needing oxygen at the time of discharge. This is likely related to the degree of pulmonary fibrosis and chronic obstructive pulmonary disease. The patient was advised to quit smoking. He was advised to follow up with his lung doctor as well as heart doctor for possible need for stress test. Antibiotics and steroid prescriptions were provided to him. DISCHARGE DIAGNOSES: 1. Sepsis. 2. Acute hypoxic respiratory failure due to bilateral lower lobe atypical pneumonia. 3. History of chronic obstructive pulmonary disease with mild acute exacerbation. 4. Active tobacco abuse. 5. Elevated troponins due to type 2 myocardial infarction without any known history of coronary artery disease. 6. Hyponatremia due to use of hydrochlorothiazide. OTHER DIAGNOSES: 1. History of essential hypertension. 2. History of obstructive sleep apnea on home CPAP. 3. History of obesity. 4. History of COPD DISCHARGE MEDICATIONS: Fluticasone propionate 50 mcg nasal at nighttime, hydrochlorothiazide 12.5 mg daily, furosemide 40 mg daily, olmesartan hydrochlorothiazide 40/25 mg tablet daily, aspirin 81 mg daily, azithromycin 500 mg daily 3 tablets, cefuroxime 500 mg b.i.d. 6 tablets, prednisone 40 mg daily for 3 days, albuterol sulfate 2 puffs inhaled every 4 hours as needed for shortness of breath. Home oxygen. VITALS: At the time of discharge temperature 98.4 degrees, pulse 69, respiratory rate 22, blood pressure 169/94 saturating 98% room air. PHYSICAL EXAMINATION: Obese, not in acute distress, oral cavity is moist. Lungs: Air entry bilaterally equal. No wheeze, rhonchi, or crackles. He does have decreased breath sounds bilaterally. S1, S2 normal. No murmur, rub, or gallop. Abdomen: Obese, soft, nontender. He has mild lower extremity edema. He is alert and oriented x3. 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 SIGNIFICANT LABS: At the time of hospital admission and discharge, he had WBC of 18,000 on presentation which improved to 10,000 at the time of discharge, hemoglobin 12.2, platelet 178,000, pH 7.39, pCO2 59, oxygen PO2 81 on BiPAP. Sodium 130, chloride 92, BUN 15, creatinine 0.7. Lipid panel had LDL of 54. Urine Legionella and streptococcal antigens were negative. Urinalysis was negative influenza screen. Blood culture did not have any growth. SIGNIFICANT IMAGING: Chest x-ray on November 22 had left basilar scarring versus recurrent infiltrate, new mid lower thoracic compression fracture. Abdomen and pelvis CT on November 22 had a patchy airspace consolidation with tree-in-bud opacities in both lung bases suggestive of atypical pneumonia and bronchiolitis, advanced hepatic steatosis. Chest x-ray on November 24 had pulmonary fibrosis. Electrocardiogram on November 22 had a sinus rhythm with short PA interval and occasional premature ventricular contraction, nonspecific ST abnormality. Echocardiogram on November 23 had normal left ventricular size, end-diastolic dimension of 5.1 cm, [id number] left ventricular hypertrophy with posterior and intraventricular septal wall thickness of 1.4 cm. Normal LV systolic function, estimated EF of 60% with normal wall motion. CONSULTATION DURING HOSPITAL ADMISSION: Pulmonology, Dr. Olivo. HOSPITAL COURSE SUMMARY: Mr. Martinez is a 59-year-old man with active tobacco abuse, who presented on November 22 nighttime with chief complaint of shortness of breath of about 4 days' duration. He has been having progressively worsening shortness of breath and he was also around his grandchildren who were diagnosed with flu and he decided to come to the emergency room. In the emergency room his imaging had suggested possibility of pneumonia. His influenza test was negative. The patient was also occasionally coughing with most of the time a dry cough, though he was not feeling well. In the emergency room he was found to have temperature of 100.8 degrees, pulse of 102, respiratory rate of 26, blood pressure of 93/57, and oxygen saturation of 87 so hospitalist team was consulted for further management. The patient was diagnosed with sepsis and acute hypoxic respiratory failure due to bilateral lower lobe pneumonia. He was started on inhaled bronchodilators, oxygenation, intravenous antibiotics and intravenous steroids and admitted for further management. With these therapies, patient's clinical condition improved. However, his hypoxia persisted and pulmonology was consulted. It was thought that his hypoxia could be in the setting of his baseline COPD, pulmonary fibrosis, and/or his atypical pneumonia. At the time of discharge, he was asymptomatically feeling better and home oxygen was arranged for him. He was advised to have follow up with his routine compliance attorney outpatient. He was also advised to keep wearing his nighttime CPAP for obstructive sleep apnea. On presentation, he also had elevated troponin of 125, though he did not have any chest pain. He did not have any chest pressure. His EKG did not have any ST elevation. His echocardiogram was unremarkable. He was advised to establish care with a operating theatre technician and get a stress test outpatient. He agreed to it. He was also counseled about smoking cessation. DISPOSITION: More than 30 minutes of time was spent in discharging this patient. I sat down and informed him about his pneumonia. I counseled him about smoking cessation. I also told him that there are several medical options to help him quit smoking and he should have a discussion with his regular doctor. I also talked to him about his abnormal heart enzymes and need for stress test. He states that he did have echocardiogram in the past which was unremarkable and I informed him that echocardiogram may not be 100% sensitive and stress test could be performed. He states he would not be able to walk and I informed him that we can perform a medicine stress test for which he may not be required to walk on the treadmill much. He agreed and he said he would follow up with his regular doctor and schedule an appointment with cardiology. TIME SPENT: More than 30 minutes' time was spent in preparing his discharge. cc: Andrew Schulte MD MTDD
== END 2019-11-26 14:31 | disposition home or self-care (01) | DRG 871 ==
LOC: ED 15:52 → EDIPHOLD 20:56 → SUATTDRO 22:03 → EDIPHOLD 22:03 → 2N 11-23 07:10 → 3N 11-25 17:05
PROVIDERS: ATTEND Internal Medicine

== ENCOUNTER 2020-01-04 20:23 | Inpatient (IN) ==
[2020-01-04] MEDS ORDERED: NS 1,000 ML IV ONE (21:03)
[2020-01-04] MEDS ORDERED: NS 1,000 ML ONE (21:08)
--- NOTE | 2020-01-04 21:22 | Diag Imaging Result Doc PS360 ---
EXAM: CHEST-1 VIEW - 01/04/2020 HISTORY: sob TECHNIQUE: Portable chest COMPARISON: 11/24/2019 FINDINGS: Heart size appears within normal limits. There are artifacts from EKG leads opacities. There is apparent pulmonary fibrosis. The lungs appear to be clear of acute changes. There is no pleural effusion or pneumothorax identified. IMPRESSION: Apparent pulmonary fibrosis. No acute changes. Electronically signed by Dewey Lewis 01/04/2020 9:20 PM
[2020-01-04 21:24] LABS: BASO# 0.02 X1000 (0.0-0.2); BASO% 0.3 % (0.0-0.8); EOS% 1.4 % (0.0-10.0); HEMATOCRIT 44.5 % (42.0-52.0); HEMOGLOBIN 14.7 g/dL (14.0-18.0); IMM GRAN# 0.02 X1000 (0.0-0.04); IMM GRAN% 0.3 % (0.0-0.5); LYMPH# 0.85 X1000 (1.2-3.4); LYMPH% 11.5 % (20.5-51.1); MCV 93.9 FL (81-99); MONO# 0.93 X1000 (0.11-0.59); MONO% 12.6 % (1.7-9.3); MPV 9.8 FL (7.4-10.4); NEUT# 5.47 X1000 (1.4-6.5); NEUT% 73.9 % (42.2-75.2); PLT 174 X1000 (130-400); RBC 4.74 XMIL (4.7-6.1); RDW 13.6 % (11.5-14.5); WBC 7.39 X1000 (4.8-10.8)
--- NOTE | 2020-01-04 21:35 | EKG Report ---
Test Performed on : 01/04/2020 9:04:50 PM Test Reason : tachcardia Blood Pressure : / mmHG Vent. Rate : 122 BPM Atrial Rate : 122 BPM P-R Int : 124 ms QRS Dur : 086 ms QT Int : 310 ms P-R-T Axes : 041 -17 066 degrees QTc Int : 441 ms Sinus tachycardia. Septal infarct , age undetermined Abnormal ECG When compared with ECG of 04-JAN-2020 20:50, (Unconfirmed) Vent. rate has decreased BY 76 BPM Septal infarct is now present ST less depressed in Lateral leads T wave inversion no longer evident in Lateral leads Unconfirmed Result
[2020-01-04 21:37] LABS: INR 0.99; PROTIME 13.2 Seconds (11.0-16.0)
[2020-01-04 21:38] LABS: PTT 48.3 Seconds (22.3-41.8)
[2020-01-04 21:54] LABS: AGAP 15; ALB/GLOB RATIO 1.1; ALKALINE PHOSPHATASE 102 U/L (32-122); BUN 11 mg/dL (8-22); CALCIUM 9.3 mg/dL (8.8-10.2); CHLORIDE 96 mmol/L (98-107); COSMO 275; CREATININE 1.1 mg/dL (0.7-1.2); ESTIMATED GFR > 60; GLUCOSE 156 mg/dL (70-104); GOT 37 U/L (10-34); GPT 41 U/L (10-44); SODIUM 136 mmol/L (136-145); TCO2 25 mmol/L (25-35); TOTAL BILIRUBIN 0.19 mg/dL (0.20-1.00); TOTAL PROTEIN 7.8 g/dL (6.3-8.3)
[2020-01-04 22:31] LABS: CK PROFILE 260 U/L (24-204)
[2020-01-04 23:01] LABS: CK INDEX 1.3 (0.0-2.5); CK-MB 3.47 ng/mL (0.0-5.0)
[2020-01-04] MEDS ORDERED: DILAUDID IV ONE (23:52)
[2020-01-04] MEDS ORDERED: TYLENOL PO ONE (23:52)
[2020-01-04] MEDS ORDERED: ZOFRAN IV ONE (23:52)
[2020-01-05] MEDS ORDERED: TYLENOL ONE (00:19)
[2020-01-05 00:29] LABS: URINE SOURCE CLEAN CATCH
[2020-01-05 00:33] LABS: BILIRUBIN URINE NEGATIVE (NEGATIVE); BLOOD URINE NEGATIVE (NEGATIVE); COLOR YELLOW; GLUCOSE URINE NEGATIVE (NEGATIVE); KETONE URINE NEGATIVE (NEGATIVE); LEUKOCYTES URINE NEGATIVE (NEGATIVE); NITRITE URINE NEGATIVE (NEGATIVE); PH URINE 7.5; PROTEIN URINE 50 mg/dL (NEGATIVE); SP GRAVITY URINE 1.025; TURBIDITY URINE CLEAR (CLEAR); UR EPITHELIAL CELLS <10 /HPF (<10); URINE BACTERIA NEGATIVE /HPF; URINE RBC <10 /HPF (<10); URINE WBC <10 /HPF (<10); UROBILINOGEN URINE NORMAL (NORMAL)
--- NOTE | 2020-01-05 00:53 | PROVIDER DOCUMENTATION ---
This chart was entered by Leilani Wheatley Scribe, acting as scribe for Harman Villalpando MD. HPI-Cardiac General - General Chief Complaint: Palpitations Stated Complaint: CHEST PAIN/SOB/FAST HEART RATE Time Seen by Provider: 01/04/20 21:01 Source: patient, family () Allergies/Adverse Reactions: Patient Allergies Allergy/AdvReac Type Severity Reaction Status Date / Time No Known Allergies Allergy Verified 11/22/19 17:48 Home Medications: Home Medication List Medication Instructions Recorded Confirmed Last Taken Type Albuterol Sulfate [Proair Hfa] 2 puff IH Q4H PRN PRN #1 hfa.[email or web address].[email or web address] 11/24/17 01/04/20 11/22/19 Rx Hydrochlorothiazide 12.5 mg PO DAILY 11/24/17 01/04/20 11/22/19 History Furosemide [Lasix] 40 mg PO DAILY 11/22/19 01/04/20 11/22/19 History Olmesartan/Hydrochlorothiazide 40 mg PO DAILY 11/22/19 01/04/20 11/22/19 History [Olmesartan-Hctz 40-25 mg Tab] Aspirin 81 mg PO DAILY #30 chewtab 11/26/19 01/04/20 Unknown Rx Cefuroxime Axetil [Cefuroxime] 500 mg PO BID #6 tab 11/26/19 01/04/20 Unknown Rx Ibuprofen 800 mg PO DAILY 01/04/20 01/04/20 Unknown History Ipratropium Benjamin Neb [Atrovent 0.5 mg INH RTQ6H 01/04/20 01/04/20 Unknown History Neb] Potassium Chloride 20 meq PO DAILY 01/04/20 01/04/20 Unknown History - History of Present Illness-Cardiac Nature of Presenting Problem: 59 yowm presents to the ed with c/o cold sx with fever, chills, sob, cough since this am and acute onset of SVT (pt not sure of onset). pt denies hx of SVT and sts took ASA today due to fever and denies chest pain. pt sts on exam he feels great except for cold sx. Quality of Pain: reports: none Severity in ED: moderate Onset/Duration: unsure Timing: still present Context/Activities at Onset: reports: light activity Modifying Factors: improves with: other (ASA helped with fever and aches) Palpitation Quality: fast/pounding heart beat History of arrythmia: reports: SVT Recent use of:: reports: caffeine Nitro Today/Relief: reports: no nitro taken today Aspirin Treatment Today: reports: 325 mg x 1, provided at home Prior Chest Pain/Cardiac Workup: reports: no prior chest pain Associated Symptoms: reports: diaphoresis, fever/chills. denies: abdominal pain, back pain, nausea, shortness of breath, vomiting Similar Symptoms Previously?: No Recently Seen Here or By Another Healthcare Provider: No Review of Systems - Adult - REVIEW OF SYSTEMS - ADULT Constitutional: reports: see HPI, chills, fever Eyes: reports: no symptoms reported Ears, Nose, Mouth & Throat: reports: see HPI, other (cold sx) Cardiovascular: reports: see HPI, palpitations. denies: chest pain, syncope Respiratory: reports: see HPI, cough, shortness of breath. denies: wheezing Gastrointestinal: denies: diarrhea, nausea, vomiting Genitourinary: reports: no symptoms reported Musculoskeletal: denies: back pain, neck pain Integumentary: reports: no symptoms reported Neurological: denies: dizziness/vertigo, headache/migraines Psychiatric: reports: no symptoms reported Endocrine: reports: no symptoms reported Hematologic/Lymphatic: reports: no symptoms reported Allergic/Immunologic: reports: no symptoms reported All Other Systems: Reviewed and Negative Past History - Adult - PAST MEDICAL HISTORY-ADULT Review of Records: reports: Old Records Reviewed, Nursing Assessment Review, Medications Reviewed, Social history reviewed & non-contributory. Major Childhood Illnesses: reports: denies history Cardiovascular: reports: HTN Respiratory: reports: COPD, sleep apnea Gastrointestinal: reports: GERD Genitourinary: reports: denies history Musculoskeletal: reports: intervertebral disc disease, neck/back injury Neurological: reports: denies history Endocrine/Immune: reports: denies history Other Conditions: reports: denies history - PRIOR SURGERIES/PROCEDURES Surgical/Procedure History: reports: cholecystectomy, back/neck, other (jaw repair) - IMMUNIZATION STATUS Childhood Immunizations: See Nurse Assessment Flu Vaccine: See Nurse Assessment - FAMILY HISTORY Family History: reviewed, not pertinent - SOCIAL HISTORY Smoking: quit less than 1 year Substance Use: denies Living Situation: family Physical Exam-General - PHYSICAL EXAM-ADULT Initial Vital Signs Reviewed: Yes (noted temp-101.1 HR-198 RR-22 O2-89% RA) - CONSTITUTIONAL General Appearance: appears well, alert, no apparent distress (pt sts "I feel great even though I got a cold"), obese - EYES Eyes: PERRL/EOMI, pink conjunctivae - HEAD, EARS, NOSE, MOUTH & THROAT HENMT: moist mucous membranes, other (cold sx) - NECK Neck: non-tender, full range of motion, supple, normal inspection - RESPIRATORY Respiratory: chest non-tender, lungs clear, normal breath sounds, other (pt placed on O2 3LPM via NC and O2 sat came up to 96%) - CARDIOVASCULAR Cardiovascular: other (SVT 198) - CHEST (BREASTS) Chest/Breast: deferred - GASTROINTESTINAL (ABDOMEN) Abdominal Exam: normal bowel sounds, non tender, soft - GENITOURINARY Male Genitalia: deferred Rectal Exam: deferred Hemoccult Exam: deferred - LYMPHATIC Lymphatic: no adenopathy - MUSCULOSKELETAL Back Exam: no CVA tenderness, no vertebral tenderness Extremity: normal range of motion, normal inspection, normal capillary refill, pelvis stable - SKIN Integumentary: normal color, normal turgor, diaphoresis (mild) - NEUROLOGIC Neurologic: grossly normal - PSYCHIATRIC Psych/Mental Status: normal mood/affect, normal thought content, normal thought process, oriented x 3 - HEART Score HEART Score: History: Moderately Suspicious HEART Score: ECG: Non-Specific Repolarization Disturbance/LBBB/PM HEART Score: Age: 45-65 Years HEART Score: Risk Factors for Atherosclerotic Disease: > or = 3 Risk Factors or History of Atherosclerotic Disease HEART Score: Troponin: 1-3x Normal Limit Total HEART Score:: 6 Progress - PLAN OF CARE/RESULTS Progress/Plan/Lab Results: Vital Signs - 8 hr 01/04/20 20:40 01/04/20 22:00 Temperature 101.1 F H 99.9 F H Pulse Rate 198 H Respiratory Rate 22 Blood Pressure 125/95 O2 Sat by Pulse Oximetry 89 L 01/04/20 21:00 Influenza Screen - Final Nasopharyngeal Laboratory Results - last 24 hr 01/04/20 01/04/20 01/04/20 00:21 00:21 20:58 WBC RBC Hgb Hct MCV MCH MCHC RDW Std Deviation Plt Count MPV Immature Gran % (Auto) Neut % (Auto) Lymph % (Auto) Scurry % (Auto) Eos % (Auto) Baso % (Auto) Immature Gran # (Auto) Neut # (Auto) Lymph # (Auto) Scurry # (Auto) Eos # (Auto) Baso # (Auto) PT INR PTT (Actin FS) Sodium 136 Potassium 4.0 Chloride 96 L Carbon Dioxide 25 Anion Gap 15 BUN 11 Creatinine 1.1 Estimated GFR/1.73 m2 > 60 BUN/Creatinine Ratio 10 Glucose 156 H Calculated Osmolality 275 Calcium 9.3 Total Bilirubin 0.19 L AST 37 H ALT 41 Alkaline Phosphatase 102 Creatine Kinase 260 H Creatine Kinase Index 1.3 CK-MB (CK-2) 3.47 Troponin T High Sens 242 H* Bcd-[id number]-Kqhdwekmjhu Pept Total Protein 7.8 Albumin 4.0 Globulin 3.8 Albumin/Globulin Ratio 1.1 Plasma Lactate Urine Source CLEAN CATCH Urine Color YELLOW Urine Turbidity CLEAR Urine pH 7.5 Ur Specific [place] 1.025 Urine Protein 50 A Ur Glucose (Stick) NEGATIVE Ur Ketones (Stick) NEGATIVE Urine Blood NEGATIVE Urine Nitrite NEGATIVE Urine Bilirubin NEGATIVE Urobilinogen Dipstick NORMAL Urine Leukocytes NEGATIVE Urine WBC (Auto) <10 Urine RBC (Auto) <10 U Epithel Cells (Auto) <10 Urine Bacteria (Auto) NEGATIVE 01/04/20 01/04/20 01/04/20 20:58 20:58 20:58 WBC RBC Hgb Hct MCV MCH MCHC RDW Std Deviation Plt Count MPV Immature Gran % (Auto) Neut % (Auto) Lymph % (Auto) Scurry % (Auto) Eos % (Auto) Baso % (Auto) Immature Gran # (Auto) Neut # (Auto) Lymph # (Auto) Scurry # (Auto) Eos # (Auto) Baso # (Auto) PT 13.2 INR 0.99 PTT (Actin FS) 48.3 H Sodium Potassium Chloride Carbon Dioxide Anion Gap BUN Creatinine Estimated GFR/1.73 m2 BUN/Creatinine Ratio Glucose Calculated Osmolality Calcium Total Bilirubin AST ALT Alkaline Phosphatase Creatine Kinase Creatine Kinase Index CK-MB (CK-2) Troponin T High Sens 48 H D Hyv-R-Rcigprfghhh Pept 127 Total Protein Albumin Globulin Albumin/Globulin Ratio Plasma Lactate Urine Source Urine Color Urine Turbidity Urine pH Ur Specific [place] Urine Protein Ur Glucose (Stick) Ur Ketones (Stick) Urine Blood Urine Nitrite Urine Bilirubin Urobilinogen Dipstick Urine Leukocytes Urine WBC (Auto) Urine RBC (Auto) U Epithel Cells (Auto) Urine Bacteria (Auto) 01/04/20 01/04/20 01/05/20 20:58 20:58 00:50 WBC 7.39 RBC 4.74 Hgb 14.7 Hct 44.5 MCV 93.9 MCH 31.0 MCHC 33.0 RDW Std Deviation 13.6 Plt Count 174 MPV 9.8 Immature Gran % (Auto) 0.3 Neut % (Auto) 73.9 Lymph % (Auto) 11.5 L Scurry % (Auto) 12.6 H Eos % (Auto) 1.4 Baso % (Auto) 0.3 Immature Gran # (Auto) 0.02 Neut # (Auto) 5.47 Lymph # (Auto) 0.85 L Scurry # (Auto) 0.93 H Eos # (Auto) 0.10 Baso # (Auto) 0.02 PT INR PTT (Actin FS) Sodium Potassium Chloride Carbon Dioxide Anion Gap BUN Creatinine Estimated GFR/1.73 m2 BUN/Creatinine Ratio Glucose Calculated Osmolality Calcium Total Bilirubin AST ALT Alkaline Phosphatase Creatine Kinase Creatine Kinase Index CK-MB (CK-2) Troponin T High Sens Miv-H-Mityuszrmlq Pept Total Protein Albumin Globulin Albumin/Globulin Ratio Plasma Lactate 1.5 0.7 Urine Source Urine Color Urine Turbidity Urine pH Ur Specific [place] Urine Protein Ur Glucose (Stick) Ur Ketones (Stick) Urine Blood Urine Nitrite Urine Bilirubin Urobilinogen Dipstick Urine Leukocytes Urine WBC (Auto) Urine RBC (Auto) U Epithel Cells (Auto) Urine Bacteria (Auto) Orders Category Date Time Status Admit [facility] Routine AdmDCTranf 01/05/20 01:10 Active Activity - Up with Assistance ORDERED Care 01/05/20 01:10 Active Apply Mechanical Device [QM] ORDERED Care 01/05/20 01:10 Active Cardiac Monitoring NOW Care 01/04/20 21:05 Active IV Insertion NOW Care 01/04/20 21:05 Completed Intake and Output-Strict ORDERED Care 01/05/20 01:10 Active NEWS Score >or=5:Order NEWS Bundle S.O. NOW Care 01/04/20 21:04 Active Notify Provider of NEWS Score NOW Care 01/04/20 21:05 Active Vital Signs Order Q 8-HR ASSESS Care 01/05/20 01:10 Active Z-Document. for Tele Applied ORDERED Care 01/05/20 01:10 Active Heart Healthy Diet Diet 01/05/20 01:10 Active CHEST-1 VIEW [RAD] Stat Exams 01/04/20 21:03 Completed BASIC METABOLIC PANEL [CHEM] Routine Lab 01/06/20 06:00 Uncollected BLOOD CULTURE [BLDCUL] Stat Lab 01/04/20 20:58 Results C DIFF ANTIGEN [STOOL] Stat Lab 01/04/20 21:05 Uncollected CBC WITH DIFF [HEME] Routine Lab 01/06/20 06:00 Uncollected CBC WITH DIFF [HEME] Stat Lab 01/04/20 20:58 Completed CK PROFILE [SP CHEM] Stat Lab 01/04/20 20:58 Completed COMPREHENSIVE METABOLIC PANEL [CHEM] Stat Lab 01/04/20 20:58 Completed INFLUENZA SCREEN A/B Stat Lab 01/04/20 21:00 Completed LACTATE, PLASMA [CHEM] Lab 01/05/20 00:50 Completed LACTATE, PLASMA [CHEM] Lab 01/05/20 03:15 Uncollected LACTATE, PLASMA [CHEM] Q3H Lab 01/04/20 20:58 Completed PRO B-NATRIURETIC PEPTIDE Stat Lab 01/04/20 20:58 Completed PROTIME WITH INR [COAG] Stat Lab 01/04/20 20:58 Completed PTT [COAG] Stat Lab 01/04/20 20:58 Completed TROPONIN T HIGH SENSITIVITY Stat Lab 01/04/20 00:21 Completed TROPONIN T HIGH SENSITIVITY Stat Lab 01/04/20 20:58 Completed URINALYSIS W/POSS RFLX CULT [URINALYSIS] Stat Lab 01/04/20 00:21 Completed 0.9% Sodium Chloride Inj [Ns] 1,000 ml Med 01/04/20 21:08 Discontinued .ROUTE As directed 0.9% Sodium Chloride Inj [Ns] 1,000 ml Med 01/04/20 21:03 Discontinued IV 999 mls/hr Acetaminophen [Tylenol] Med 01/04/20 23:52 Discontinued 1,000 mg PO NOW ONE Acetaminophen [Tylenol] Med 01/05/20 00:19 Discontinued 500 mg .ROUTE .STK-MED ONE Acetaminophen [Tylenol] Med 01/05/20 01:10 Active 650 mg PO Q6H PRN PRN Albuterol 2.5MG/Ipratrop 0.5MG [Duoneb (A & A)] Med 01/05/20 03:30 Active 3 ml INH RTQ4H Aspirin Med 01/05/20 09:00 Active 81 mg PO DAILY Enoxaparin 1 mg/kg [Lovenox 1 mg/kg] Med 01/05/20 01:45 Ordered 1 each SUBQ Q12H Furosemide [Lasix] Med 01/05/20 09:00 Active 40 mg PO DAILY Hydrochlorothiazide Med 01/05/20 09:00 Active 12.5 mg PO DAILY Hydromorphone [Dilaudid] Med 01/04/20 23:52 Discontinued 0.5 mg IV NOW ONE Levofloxacin 500 mg/D5w [Levaquin 500 mg/D5w] Med 01/05/20 01:10 Active 500 mg in 100 ml IV Q24H Methylprednisolone Sod Succ [Solu-Medrol] Med 01/05/20 01:10 Active 60 mg IV Q8H Olmesartan/Hydrochlorothiazide [Olmesartan-Hctz 40-25 Med 01/05/20 09:00 Ordered mg Tab] 40 mg PO DAILY Ondansetron [Zofran] Med 01/04/20 23:52 Discontinued 4 mg IV NOW ONE Ondansetron [Zofran] Med 01/05/20 01:10 Active 4 mg IV Q4H PRN PRN Aerosol Treatments Routine Oth 01/05/20 01:10 Active Aerosol Treatments Stat Oth 01/05/20 01:10 Active O2 Per Protocol Stat Oth 01/04/20 21:05 Active Telemetry [OM.EQ] Routine Oth 01/05/20 01:10 Active EKG [EKG] Stat Ther 01/04/20 21:03 Draft Transfer/Admit Order [TRANSFER] Routine Transfer 01/05/20 00:54 Completed Transfer/Admit Order [TRANSFER] Routine Transfer 01/05/20 01:34 Ordered Result Diagrams: 01/04/20 20:58 01/04/20 20:58 - REASSESSMENT Reassessment #1 Time Reassessed: 21:27 Status: improving (pt is now in sinus tach and is improving and resting in bed) - EKG 1 Time of EKG reading by physician:: 20:50 EKG Read and Signed by:: Harman Villalpando EKG Interpretation (*Must complete 3 of following elements*): Abnormal Rate: 198 Rhythm: supraventrcular tachycardia [place]: normal QRS: normal SC Interval: normal Comments: marked ST abnormality, possible inferior subendocardial injury 2 Time of EKG reading by physician:: 21:04 EKG Read and Signed by:: Harman Villalpando EKG Interpretation (*Must complete 3 of following elements*): Abnormal Rate: 122 Rhythm: sinus tachycardia [place]: normal QRS: normal SC Interval: normal ST Wave: normal Prior EKG Comparison: changes noted Comments: septal infarct, age undetermined - XRAY 1 XRAY: Bilateral XRAY Study: Chest Impression: See EMR Report (EXAM: CHEST-1 VIEW - 01/04/2020 HISTORY: sob TECHNIQUE: Portable chest COMPARISON: 11/24/2019 FINDINGS: Heart size appears within normal limits. There are artifacts from EKG leads opacities. There is apparent pulmonary fibrosis. The lungs appear to be clear of acute changes. There is no pleural effusion or pneumothorax identified. IMPRESSION: Apparent pulmonary fibrosis. No acute changes. Electronically signed by Dewey Lewis 01/04/2020 9:20 PM 01/04/202119 Interpreting Physician: Dewey Lewis MD Dictated Date/Time: 01/04/202117 cc: Harman Villalpando MD; Bisi Sigala MD) - CONSULTS/PCP/HOSPITALIST Notification #1 *Consult/PCP/Hospitalist*: Dr Peralta Time Discussed: 00:52 Consult Disposition: Will see in ED, Admit #2 Consult: Dr Wiley Time Discussed: 01:36 Consult Disposition: other (will consult and agreed with lovenox) Departure - Departure Date of Disposition Decision: 01/05/20 Time of Disposition Decision: 00:50 DIAGNOSIS: Hypoxia, COPD exacerbation, Viral syndrome, SVT (supraventricular tachycardia), Elevated troponin, NSTEMI (non-ST elevated myocardial infarction) Disposition: ADMITTED INPATIENT 09 Certified Medical Emergency: Emergent Condition: Fair Referrals and Follow-Ups: Bisi Sigala MD [Primary Care Provider] - - Critical Care Note This patient required my direct & personal management of CC.: No Attestation - Physician/ ISHAN Attestation Patient care was provided by Advanced Practice Provider:: No The physician spent face to face time with patient:: Yes Advanced Practice Provider documentation review:: Supervising physician onsite and consulted in the evaluation and care of this patient. The physician did have a face to face encounter with the patient. This chart was documented by the indicated scribe, (Leilani Wheatley Scribe) and accurately reflects the services I performed and decisions made by me, Harman Villalpando MD, as attested by the provider's signature.
[2020-01-05] MEDS ORDERED: ZOFRAN IV PRN (01:10)
[2020-01-05] MEDS ORDERED: TYLENOL PO PRN (01:10)
[2020-01-05] MEDS: LEVAQUIN 500 MG/D5W 500 MG/100 ML IVPB IV SCH ×2 (01:38→23:25)
[2020-01-05] MEDS: SOLU-MEDROL IV SCH ×2 (01:38→08:55)
[2020-01-05] MEDS ORDERED: ASPIRIN PO STA (01:46)
[2020-01-05] MEDS: LOVENOX SUBQ SCH ×2 (01:53→15:01)
[2020-01-05] MEDS: DUONEB (A & A) INH SCH ×5 (03:05→19:30)
--- NOTE | 2020-01-05 03:54 | HISTORY AND PHYSICAL ---
PRIMARY CARE PHYSICIAN: Dr. Sigala. CHIEF COMPLAINT: Shortness of breath, cough, not feeling well. HISTORY OF PRESENTING ILLNESS: A 59-year-old male with a history of hypertension who presented to emergency department with several days history of having cough, some shortness of breath and not feeling well. Patient states that he had a low-grade temperature at his house. He was seen in the ED and it was suspected possibly he was having a COPD exacerbation. Subsequently, he will require admission for further management. During his initial presentation, he was also found to be in SVT but spontaneously converted back to sinus rhythm. PAST MEDICAL HISTORY: Includes hypertension. PAST SURGICAL HISTORY: Includes cholecystectomy, jaw surgery. ALLERGIES: No known drug allergies. CURRENT MEDICATIONS: Include albuterol inhaler 2 puffs q.4 hours, aspirin 81 mg p.o. daily, Lasix 40 mg p.o. daily, hydrochlorothiazide 12.5 mg p.o. daily, olmesartan/hydrochlorothiazide 40/25 mg p.o. daily. SOCIAL HISTORY: He is a former smoker. Denies any history of alcohol or illicit drug use. FAMILY HISTORY: Positive for coronary disease in father. REVIEW OF SYSTEMS: A 14-point review of systems listed as in HPI. Other systems negative. PHYSICAL EXAMINATION: GENERAL: Cooperative, friendly, obese male. He is resting more comfortably now. VITAL SIGNS: Temperature 101.1 degrees, pulse 198, respirations 22, blood pressure 125/95, saturating 89%. HEENT: Atraumatic, normocephalic. Extraocular movements intact. PERRLA. NECK: No masses. CHEST: Rhonchi. CARDIOVASCULAR: Regular rate and rhythm. ABDOMEN: Soft, obese. Positive bowel sounds. EXTREMITIES: Trace edema. NEUROLOGIC: He is awake, alert, oriented x3. GENITOURINARY: No bladder distention. SKIN: Warm. LABORATORIES AND STUDIES: WBC 7.39, hemoglobin 14.7, hematocrit 44.5, platelets 174,000. Sodium 136, potassium 4.0, chloride 96, CO2 is 25, BUN is 11, creatinine is 1.1. Glucose 156. Troponin is 242. Chest x-ray, apparent pulmonary fibrosis. ASSESSMENT: A 59-year-old male with a history of hypertension, presented to emergency department with several days history of having shortness of breath, cough and low-grade temperature. He was seen in the ED, was suspected possibly he was having chronic obstructive pulmonary disease exacerbation. He is also noted to have elevated troponin. He was previously admitted several months ago and was told to have an outpatient GXT, however, he never did. Due to these findings, he will require admission for further management. 1. Acute chronic obstructive pulmonary disease exacerbation. 2. Elevated troponin, possible non-ST segment elevation myocardial infarction. 3. Hypertension. 4. Obesity. PLAN: 1. We will admit patient to PVC. 2. We will continue duo nebs, IV Solu-Medrol, and IV antibiotics. 3. We will trend his troponins and consult Cardiology. 4. Monitor blood pressure closely. Resume antihypertensive agent. 5. The patient is on Lovenox and this will suffice for DVT prophylaxis. 6. We will continue to follow, reassess, make further recommendation based on patient's clinical course. cc: Jose Guadalupe Peralta MD
[2020-01-05 07:56] LABS: BASO# 0.01 X1000 (0.0-0.2); BASO% 0.2 % (0.0-0.8); IMM GRAN# 0.03 X1000 (0.0-0.04); IMM GRAN% 0.5 % (0.0-0.5); LYMPH# 0.48 X1000 (1.2-3.4); LYMPH% 7.4 % (20.5-51.1); MCH 31.1 PG (27-31); MCHC 32.6 g/dL (33-37); MCV 95.6 FL (81-99); MONO# 0.14 X1000 (0.11-0.59); MONO% 2.2 % (1.7-9.3); MPV 9.9 FL (7.4-10.4); NEUT# 5.84 X1000 (1.4-6.5); NEUT% 89.7 % (42.2-75.2); PLT 160 X1000 (130-400); RDW 13.7 % (11.5-14.5)
[2020-01-05 08:21] LABS: AGAP 11; BUN 15 mg/dL (8-22); CALCIUM 8.6 mg/dL (8.8-10.2); CHLORIDE 97 mmol/L (98-107); COSMO 276; ESTIMATED GFR > 60; GLUCOSE 226 mg/dL (70-104); POTASSIUM 4.6 mmol/L (3.5-5.1); SODIUM 134 mmol/L (136-145); TCO2 26 mmol/L (25-35)
[2020-01-05 08:50] LABS: ANISOCYTOSIS 2+; LYMPHS 7 % (21-51); MICROCYTOSIS 2+; MONO 2 % (1-9); SEGS 91 % (42-75)
[2020-01-05] MEDS: BENICAR PO SCH (08:54)
[2020-01-05] MEDS: LASIX PO SCH (08:55)
[2020-01-05] MEDS ORDERED: ASPIRIN PO SCH (09:00)
[2020-01-05] MEDS ORDERED: HYDROCHLOROTHIAZIDE PO SCH ×2 (09:00)
--- NOTE | 2020-01-05 10:45 | EKG Report ---
Test Performed on : 01/05/2020 10:37:38 AM Test Reason : chest pain Blood Pressure : / mmHG Vent. Rate : 069 BPM Atrial Rate : 069 BPM P-R Int : 130 ms QRS Dur : 098 ms QT Int : 402 ms P-R-T Axes : 027 -25 -06 degrees QTc Int : 430 ms Normal sinus rhythm. Minimal voltage criteria for LVH, may be normal variant Nonspecific ST abnormality Abnormal ECG When compared with ECG of 04-JAN-2020 21:04, (Unconfirmed) Vent. rate has decreased BY 53 BPM Criteria for Septal infarct are no longer present Nonspecific T wave abnormality now evident in Inferior leads Confirmed by Brian Moeller MD ([id number]) on 01/05/2020 9:39:07 PM
[2020-01-05 11:23] LABS: CK INDEX 2.6 (0.0-2.5); CK-MB 8.65 ng/mL (0.0-5.0)
[2020-01-05] MEDS ORDERED: ROCEPHIN 1 GM in NS 50 ML IV SCH (13:00)
--- NOTE | 2020-01-05 14:01 | Diag Imaging Result Doc PS360 ---
CT ANGIOGRM PULMONARY ARTERIES - 01/05/2020 INDICATION: chest pain TECHNIQUE: Axial CT images were obtained after administering intravenous contrast. Coronal MIP images were generated. COMPARISON: None FINDINGS: There is no pulmonary embolism. Heart size is normal with no pericardial effusion. There is extensive calcified triple-vessel coronary artery disease. There is advanced fatty change of the liver. There are cholecystectomy clips. Otherwise upper abdominal images are unremarkable. There are some patchy bandlike infiltrates or areas of atelectasis in the lung bases bilaterally. There is also extensive bronchitis and some very mild mucous plugging of small airways in the lower lobes. No significant airway obstruction. No pneumothorax or pleural effusion. IMPRESSION: Negative for pulmonary embolism. Bronchitis. Bandlike infiltrates or atelectasis in the lung bases. Fatty liver. This exam was performed using automated exposure control, adjustment of mA or kV according to patient size, and/or use of iterative reconstruction technique Electronically signed by Florin Felton 01/05/2020 1:58 PM
--- NOTE | 2020-01-05 14:03 | CARDIOLOGY CONSULTATION ---
DATE: 01/05/2020 REASON FOR CONSULTATION: Cardiology was consulted for SVT abnormal cardiac enzymes. HISTORY OF PRESENT ILLNESS: Mr. Harman Martinez is a 59-year-old gentleman with history of hypertension came to the emergency room as at home he noticed elevated temperature going up to 99 to 100. He also had elevated heart rate on his monitors. He has a pulse oximetry monitor at home. Heart rate went up to 150 and then subsequently 180, came to the emergency room. He was noted to be in supraventricular tachycardia heart rate of 198 beats per minute, spontaneously converted to sinus rhythm. Subsequent electrocardiogram revealed normal sinus rhythm. There was no ST-T changes to suggest ischemia. He denies any chest pain. He was admitted recently with pneumonia, he was admitted on 11/22/2019 discharged on 11/26/2019 with a diagnosis of hypoxic respiratory failure, left lower lobe pneumonia, history of COPD, active tobacco abuse. Had troponin abnormal at that time as well, troponin was 240 and subsequent discharge troponin was down to 40. PAST MEDICAL HISTORY: In addition includes hypertension, sleep apnea, history of COPD, pulmonary fibrosis, obesity, chronic smoker. ALLERGIES: He is not known to be allergic to any medications. CURRENT MEDICATIONS: Include albuterol inhalers, aspirin, Lasix 40, hydrochlorothiazide 12.5, olmesartan hydrochlorothiazide 40/25. SOCIAL HISTORY: Patient is former smoker. Denies alcohol or illicit drug abuse. REVIEW OF SYSTEM: A 14-point review of systems was done. GI: There is no history of nausea, vomiting, diarrhea. There is no history of hematemesis or melena. Central nervous system: No focal weakness to suggest CVA, TIA. : There is no dysuria or hematuria. PHYSICAL EXAMINATION: Blood pressure was 153/100. Jugular venous pressure was normal. First and second heart sounds were heard. There was no S3 gallop. Respiratory: Distant breath sounds, few scattered wheeze. Abdomen: Soft, nontender. There was no guarding or rigidity. Bowel sounds were heard. Central nervous system: Alert and was moving all 4 extremities. Extremities: Revealed mild pedal edema. Examination of his neck revealed jugular venous pressure was normal. There was no obvious lymphadenopathy. LABS: WBCs 6.50, hemoglobin 14, hematocrit 43, platelet count 166,000. Chemistry. Sodium 134, potassium 4.6, BUN 15, creatinine 1.0. Troponin T high sensitivity was 168. Chest x-ray: Pulmonary fibrosis, no acute changes. ASSESSMENT AND PLAN: Mr. Harman Martinez is a 59-year-old gentleman who has history of hypertension, chronic obstructive pulmonary disease, pulmonary fibrosis was admitted earlier this year with pneumonia, treated and subsequently discharged home. He comes in with having a low- grade fever in addition to elevated heart rate. Denies any chest pain. He was in supraventricular tachycardia with a heart rate of 198 beats per minute, spontaneously converted to sinus rhythm. He has abnormal cardiac enzymes of 168. During his recent last hospitalization his troponin was abnormal at 242 this was on 01/04/2020, subsequently another troponin was 48 and today's troponin is 168. During his recent last hospitalization his troponin was abnormal at 125 and 105. Abnormal troponin probably could be related to his supraventricular tachycardia which he has had which has been documented during this hospitalization. However he does not complain of chest pain, is a chronic smoker. Given this, recommend the following. 1. Will set him up to undergo Lexiscan Cardiolite stress test to assess for and rule out ischemia. 2. For SVT he also has hypertension we will start him on Cardizem CD 180 mg daily. Continue with the olmesartan, Benicar. 3. He has an appointment to see a fermenter wine in [place] in the next 2 weeks. 4. He had an echocardiogram done which revealed preserved left ventricular systolic function. Will get a limited echocardiogram again to make sure there is no change in his left ventricular systolic function. 5. Chronic obstructive pulmonary disease. Continue with his current medications. 6. He has had low-grade fevers. He is going to have a CT scan to make sure there is no infiltrate to rule out any pneumonia given the fact that he has had low-grade fevers as well. Thank you for the consult. Will follow hospital course. cc: Pravin Alvarez MD
[2020-01-05] MEDS: CARDIZEM CD PO SCH (15:01)
[2020-01-05] MEDS: ASPIRIN EC PO SCH (15:01)
--- NOTE | 2020-01-05 15:28 | ECHO REPORT ---
ORDER DATE: 01/05/2020 This appears to be a limited study with no Doppler evaluation done. It is done for evaluation of dyspnea, SVT, rule out PE. FINDINGS: This is a difficult quality study with poor 2 dimensional imaging. 1. LV appears normal in size with an end-diastolic dimension of 5 cm. There appears to be moderate left ventricular hypertrophy with a posterior and interventricular septal wall thickness 1.3 and 1.6 cm respectively. This is a difficult study with poor resolution of the endocardial borders. There is hyperdynamic LV systolic function with an estimated EF greater than 70%. No obvious segmental wall motion abnormalities. 2. Aortic valve appears to open reasonably well on difficult quality imaging. 3. No mitral prolapse. 4. Poor visualization of the right ventricle, but appears to be normal in size with normal RV systolic function. 5. No pericardial effusion identified. cc: MD Nadine Harris PA
--- NOTE | 2020-01-05 18:05 | PROGRESS NOTE ---
DATE: 01/05/2020 SUBJECTIVE: Patient has no major complaints. OBJECTIVE: Vital Signs: Blood pressure is 152/100, heart rate 96, respiratory rate 20, temperature 98.4 degrees, 98% on 2 L. Cardiovascular: Regular rate and rhythm. Pulmonary: Bilateral breath sounds clear to auscultation. GI: Soft, nontender, nondistended. Bowel sounds are positive. LABORATORY DATA: White count 6.5, hemoglobin 14 and hematocrit 43, platelets 160,000. Basic was normal. Sugar 226. Troponin was 168, 242. PROBLEM LIST: 1. Non ST segment elevation myocardial infarction versus demand ischemia. He does have positive troponins. He had positive troponins last time. He reports a heart rate into the 200s, so this could be a supply demand mismatch. 2. Bronchitis pneumonia. We will continue empiric antibiotics. He has been screen for the flu and is negative. Blood cultures have thus been far negative. 3. Chronic obstructive pulmonary disease exacerbation. He seems pretty well compensated. We will continue breathing treatments and follow. DISPOSITION: Pending clinical status anticipate discharge soon, but he is still hypoxic. He has been febrile within the last 24 hours and he is still not off O2. cc: Cristo Young MD
[2020-01-06] MEDS: DUONEB (A & A) INH SCH ×3 (04:45→11:34)
[2020-01-06 07:06] LABS: EOS# 0.01 X1000 (0.0-0.7); EOS% 0.1 % (0.0-10.0); HEMOGLOBIN 14.3 g/dL (14.0-18.0); IMM GRAN# 0.02 X1000 (0.0-0.04); IMM GRAN% 0.2 % (0.0-0.5); LYMPH# 1.27 X1000 (1.2-3.4); LYMPH% 14.3 % (20.5-51.1); MCH 31.2 PG (27-31); MCHC 33.3 g/dL (33-37); MCV 93.7 FL (81-99); MONO# 1.26 X1000 (0.11-0.59); MONO% 14.2 % (1.7-9.3); MPV 10.1 FL (7.4-10.4); NEUT% 71.2 % (42.2-75.2); PLT 166 X1000 (130-400); RBC 4.59 XMIL (4.7-6.1); RDW 13.4 % (11.5-14.5); WBC 8.86 X1000 (4.8-10.8)
[2020-01-06] MEDS ORDERED: 1/2 NS 1,000 ML IV SCH (07:30)
[2020-01-06 07:32] LABS: AGAP 12; BUN 19 mg/dL (8-22); CALCIUM 8.7 mg/dL (8.8-10.2); CHLORIDE 95 mmol/L (98-107); COSMO 273; CREATININE 0.9 mg/dL (0.7-1.2); ESTIMATED GFR > 60; GLUCOSE 117 mg/dL (70-104); MAGNESIUM 2.2 mg/dL (1.5-2.7); POTASSIUM 4.2 mmol/L (3.5-5.1); SODIUM 135 mmol/L (136-145); TCO2 28 mmol/L (25-35)
[2020-01-06 08:09] LABS: INR 0.89; PROTIME 12.2 Seconds (11.0-16.0)
[2020-01-06] MEDS ORDERED: HEPARIN 1000 UNITS/NS 2,000 UNIT/1,000 ML IV.SOLN ONE (08:42)
[2020-01-06] MEDS: CARDIZEM CD PO SCH (08:47)
[2020-01-06] MEDS ORDERED: ISOPTIN ONE (08:49)
[2020-01-06] MEDS ORDERED: VERSED ONE (09:02)
[2020-01-06] MEDS ORDERED: NS 1,000 ML ONE (09:03)
[2020-01-06] MEDS ORDERED: ANESTHESIA PB SET 88 IN 5742 ONE (09:03)
[2020-01-06] MEDS ORDERED: CLAVE TWINSITE 32 IN 11959 ONE (09:03)
[2020-01-06] MEDS ORDERED: DILAUDID ONE (09:03)
[2020-01-06] MEDS: LASIX PO SCH (10:40)
[2020-01-06] MEDS: ASPIRIN EC PO SCH (10:40)
[2020-01-06] MEDS: BENICAR PO SCH (10:40)
--- NOTE | 2020-01-06 11:07 | CARDIAC CATH REPORT ---
PROCEDURE NAME: - INDICATION FOR THE PROCEDURE: Non ST-elevation myocardial infarction, supraventricular tachycardia. PROCEDURES PERFORMED: 1. Left heart catheterization. 2. Selective coronary angiography. 3. Left ventriculogram. PROCEDURE DETAIL: Mr. Martinez was brought to the catheterization laboratory in fasting state. Informed consent was obtained. Prepped in usual fashion. He was anesthetized over the right radial after Ted's test proved adequate. A 5-Slovenian sheath was placed via true Seldinger technique. Radial cocktail was administered. Catheters were introduced. Hemodynamic measurements made in the ascending thoracic aorta. Coronary angiography was performed in multiple views using JL-3.5 and JR-4 diagnostic catheters. Left heart catheterization and a left ventriculogram was performed using the JR-4. At the conclusion of the procedure, all sheaths and catheters were removed. TR band was left inflated at 8 mL of air, very good capillary refill. Good hemostasis, 5-10 mL of blood loss, 75 mL of IV contrast. FINDINGS: 1. The left main appears normal and originates from the left coronary cusp. 2. Left anterior descending is a large vessel originating from the left main. There is 20% proximal disease with minimal luminal irregularities in the mid vessel. There is a large branching diagonal vessel with minor luminal rate irregularities. 3. Circumflex originates from the left main. Minimal luminal irregularities noted throughout the vessel but no significant obstructive disease. 4. The right coronary originates from the right coronary cusp. It has a somewhat anterior downward takeoff. There is 30 to 40 percent ostial and proximal disease. Mid vessel disease of 30 to 40 percent. There is a small 2 mm branching vessel with an 80% lesion. This is a nondominant vessel with multiple small vessel branches. 5. The ejection fraction was 65% with no obvious wall motion abnormalities. 6. LV pressure 117/5 with an EDP of 12. Aortic blood pressure 121/64 with a mean of 89. ASSESSMENT: Mr. Martinez is a 59-year-old gentleman who present with supraventricular tachycardia and troponin elevation concerning for non ST elevation. PLAN: He has small branch vessel disease in the right coronary with minor luminal irregularities elsewhere. Normal ejection fraction. Medical adjustments will be made. I will discuss the case with his primary qa analyst in the hospital, Dr. Alvarez. cc: Raleigh Wiley MD
[2020-01-06 11:18] VITALS: BP 124/78
[2020-01-06 14:54] LABS: CHOLESTEROL 139 mg/dL (0-200); HDL 34 mg/dL (35-55); LDL 49 mg/dL; TRIGLYCERIDES 280 mg/dL (39-160); VLDL 56 mg/dL
--- NOTE | 2020-01-06 21:40 | DISCHARGE SUMMARY ---
ADMISSION DATE: 01/05/2020 DISCHARGE DATE: 01/06/2020 DISCHARGE DIAGNOSES: 1. Coronary artery disease with elevated troponin but likely due to demand ischemia. 2. Supraventricular tachycardia (SVT). 3. Hypertension. 4. Bronchitis. 5. Chronic obstructive pulmonary disease. 6. Chronic hypoxic respiratory failure. CONSULTATIONS: Cardiology's procedures: Cardiac catheterization per Dr. Raleigh Wiley the showed LAD lesion of 20%, 30 to 40% ostial lesion from right coronary with 30 to 40% midvessel, small 2 mm branching vessels with an 80% lesion which was nondominant. EF of 65%. 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 He had elevated troponins, however, Cardiology evaluated him the following day. We did a CTA because we were evaluating for PE because of his positive troponins. He is not very active. Echocardiogram showed a pretty much intact EF, 70%. No major wall motion abnormality. No pericardial effusion. Cardiology initially recommended a Lexiscan and then initiated Cardizem for SVT and then they decided just to go ahead and pursue cardiac catheterization. I think some of it was concern of patient compliance. He had been here previously and had not followed up and he did have risk factors. He did have elevated troponins. This is a second episode of having these evidenced and he does have minimal nonobstructive CAD. SVT was likely the mechanism of his elevation in troponin. I do think he probably needs a statin now. DISCHARGE MEDICATIONS: Do Atrovent, Lasix 40 daily, olmesartan, hydrochlorothiazide 40/25 daily, Klor-Con 20 daily, aspirin 81 daily, do Lipitor 40, and Cardizem 180 daily. PLAN: He will need to follow up with his PCP, Dr. Sigala. He very much trusts his opinion about medications. I told the patient that he could certainly could review these medicines with his primary care physician before initiating them long-term, although I did highly recommend he continue the Cardizem until that point and return for any worsening chest pain, shortness of breath, or fever. Referred to Dr. Sigala and Dr. Alvarez. DISCHARGE CONDITION: Stable. cc: Cristo Young MD
== END 2020-01-06 15:16 | disposition home or self-care (01) | DRG 287 ==
LOC: EDIPHOLD 20:23 → ED 20:23 → OBSVTOIN 01-05 01:39 → SUATTDRO 01-05 01:39 → 3N 01-05 12:09 → EDIPHOLD 01-05 14:00 → 2N 01-05 21:35
PROVIDERS: ATTEND Internal Medicine